=== PATIENT | male | born 1945 | race Caucasian/White ===

== ENCOUNTER 2020-08-09 17:30 | Inpatient (IN) | payer MEDICARE, OTHER ==
[2020-08-09] MEDS ORDERED: Ondansetron PF 4 MG/2 ML Vial ONE (18:13)
[2020-08-09] MEDS ORDERED: Morphine 4 MG/ML VIAL ONE ×2 (18:13→18:51)
[2020-08-09 18:29] LABS: INR-International Normal Ratio 1.1; PTT 23.7 sec (22.9-36.1)
[2020-08-09 18:39] LABS: ALT (SGPT) 92 U/L (8-55); AST (SGOT) 91 U/L (5-34); Albumin 3.2 g/dL (3.4-4.8); Alkaline Phosphatase 78 U/L (40-110); Anion Gap 15 mmol/L (10-20); BUN (Urea Nitrogen) 26 mg/dL (8.4-25.7); Bilirubin, Total 0.3 mg/dL (0.2-1.2); CK (CPK) 186 U/L (30-200); Calc. Creatinine Clearance 0 mL/min (70-130); Calcium 9.8 mg/dL (7.8-10.44); Carbon Dioxide 21 mmol/L (23-31); Chloride 112 mmol/L (98-107); Globulin 3.6 g/dL (2.4-3.5); Glucose 107 mg/dL (83-110); Potassium 4.4 mmol/L (3.5-5.1); Protein, Total 6.8 g/dL (5.8-8.1); Sodium 144 mmol/L (136-145)
[2020-08-09] MEDS ORDERED: Lorazepam 2 MG/ML VIAL ONE (18:49)
[2020-08-09 19:24] LABS: Hemoglobin 10.6 g/dL (14.0-18.0); Mean Corpuscular HGB CONC 34.3 g/dL (32.0-36.0); Mean Corpuscular Hemoglobin 34.7 pg (27.0-31.0); Mean Platelet Volume 8.3 fL (7.4-10.4); Platelet Count 306 thou/uL (130-400); RBC Distribution Width 14.8 % (11.5-14.5); Red Blood Cell (RBC) Count 3.05 mill/uL (4.70-6.10); White Blood Cell (WBC) Count 7.5 thou/uL (4.8-10.8)
[2020-08-09 19:46] LABS: Band 1 % (5-11); Eosinophils 4 % (0-10); Lymphocytes 19 % (21-51); MDiff Complete? YES; Macrocytosis SLIGHT = 6-15 cells (100X) (0-5/hpf); Metamyelocyte 2 % (0-0); Monocytes 10 % (0-10); Neutrophil 64 % (42-75); Platelet Morphology Comment Appears Adequate
--- NOTE | 2020-08-09 20:15 | RAD ---
RIGHT HIP TWO VIEWS: History: Injury from trauma FINDINGS: No fracture, dislocation, or other significant acute osseous process. IMPRESSION: As above. POS: RRE
--- NOTE | 2020-08-09 20:18 | RAD ---
SINGLE VIEW OF THE CHEST: History: Fall from bed with hip pain/fracture. FINDINGS: Single view of the chest shows normal sized cardiomediastinal silhouette. Diffuse increased interstit ial markings are present. A calcified granuloma is seen in the mid left lung. No consolidation or ple ural effusions are seen. Degenerative changes are seen in the spine. IMPRESSION: No evidence of acute cardiopulmonary disease. POS: EAA
--- NOTE | 2020-08-09 20:21 | RAD ---
AP PELVIS: History: Fall from bed with hip pain. FINDINGS: Single view of the pelvis shows an intertrochanteric left femoral fracture. There is questionable irr egularity of the right superior and inferior pubic rami. No other fractures are appreciated. No degen erative changes are seen in either hip. IMPRESSION: 1. Intertrochanteric left femoral fracture. 2. Possible fractures of the right superior and inferior pubic rami. POS: EAA
--- NOTE | 2020-08-09 20:28 | RAD ---
TWO VIEWS LEFT HIP: History: Fall from bed with hip pain. FINDINGS: Two views of the left hip shows an intertrochanteric left femoral fracture. No degenerative change is seen in the left hip. No dislocation of the hip is seen. There is questionable irregularity along th e right inferior pubic ramus which could represent a nondisplaced fracture in this location. The supe rior pubic ramus may also be abnormal. IMPRESSION: 1. Intertrochanteric left femur fracture. 2. Possible fractures of the right superior and inferior pubic rami. POS: EAA
--- NOTE | 2020-08-09 20:35 | CT ---
CT BRAIN WITHOUT CONTRAST: Comparison: None History: Fall with head trauma and back pain FINDINGS: Multiple contiguous axial images were obtained in a CT of the brain without contrast. Sagittal and co vicente reformats were performed. FINDINGS: There are extensive hypodensities in the subcortical compartment of the white matter, likely secondar y to small vessel ischemic disease. There appears to be a remote infarction in the right frontal lobe . There is no evidence of hydrocephalus, intracranial hemorrhage, or extraaxial fluid collection. The calvarium and overlying soft tissues are unremarkable. The visualized paranasal sinuses and masto id air cells are well aerated. IMPRESSION: No evidence of acute intracranial abnormality. POS: EAA
[2020-08-09] MEDS ORDERED: Ondansetron PF 4 MG/2 ML Vial IVP PRN ×2 (21:22→21:33)
[2020-08-09] MEDS ORDERED: hydrALAZINE 20 MG/ML VIAL SLOW IVP PRN (21:22)
[2020-08-09] MEDS ORDERED: Dextrose 5% in Water 1,000 ML IV PRN (21:22)
[2020-08-09] MEDS ORDERED: Dextrose 50% Abboject 50 ML SYRINGE SLOW IVP PRN (21:22)
[2020-08-09] MEDS ORDERED: Morphine 2 MG/ML VIAL SLOW IVP PRN (21:22)
[2020-08-09] MEDS ORDERED: traMADol HCl 50 MG TAB PO PRN ×2 (21:33→22:52)
[2020-08-09 21:40] LABS: Magnesium 1.4 mg/dL (1.6-2.6)
[2020-08-09] MEDS ORDERED: traMADol HCl 50 MG TAB PO SCH (21:45)
[2020-08-09] MEDS ORDERED: Sodium Phosphate 30 MMOL, Magnesium Sulfate 4 GM in Sodium Chloride 0.9% 250 ML 250 ML IVPB SCH (23:00)
[2020-08-09] MEDS ORDERED: Sodium Phosphate 30 MMOL in Sodium Chloride 0.9% 250 ML 250 ML IVPB SCH (23:00)
[2020-08-09] MEDS: traMADol HCl 50 MG TAB PO SCH (23:33)
[2020-08-09] MEDS: Acetaminophen 500 MG TAB PO SCH (23:33)
[2020-08-09] MEDS ORDERED: Acetaminophen 500 MG TAB PO SCH (23:59)
[2020-08-09] MEDS ORDERED: Sodium Chloride 0.9% 1,000 ML IV SCH (23:59)
--- NOTE | 2020-08-10 00:22 | HP ---
REQUESTING PHYSICIAN: Dr. Hill. CONSULTS: Orthopedic Surgery, Dr. Whitney. CHIEF COMPLAINT: Fall from bed, left hip pain. HISTORY OF PRESENT ILLNESS: This is a 74-year-old gentleman with past medical history of dementia, epilepsy, TIA, chronic kidney disease, who lives at [facility], who fell out of bed. The patient was sent over for left hip pain. It is unsure what the patient's baseline mental status is. It is also not clear if the patient is ambulatory. The patient was agitated and yelling out in the emergency room and was given Ativan 1 mg IV. The patient was also given morphine for pain and Zofran. The patient did receive 1 L normal saline in the emergency room. Currently, the patient is resting comfortably. The patient was evaluated in the emergency room and found to have a left intertrochanteric femur fracture and a possible right superior inferior pubic rami fracture. Orthopedic Surgery was consulted. skilled nursing denies any fever, chills, chest pain, nausea, or vomiting. It has been reported this is the patient's second fall in the last couple of days. All subjective data gathered from ER records and senior care records. PAST MEDICAL HISTORY: Benign prostatic hyperplasia, hyperlipidemia, dementia, epilepsy, TIA, chronic kidney disease. PAST SURGICAL HISTORY: None. SOCIAL HISTORY: No tobacco use history reported. FAMILY HISTORY: Unknown. ALLERGIES: NO KNOWN DRUG ALLERGIES. CURRENT MEDICATIONS: 1. Amlodipine 2.5 mg daily. 2. Docusate 100 mg b.i.d. 3. Fenofibrate 145 mg daily. 4. Flomax 0.4 mg daily. 5. Keppra 100 mg twice a day. 6. Pravastatin 40 mg once a day. 7. Montelukast 10 mg p.o. h.s. 8. Vimpat 200 mg b.i.d. 9. Vitamin D 5000 units once a week every Monday. OBJECTIVE: VITAL SIGNS: Blood pressure 99/49, pulse 97, SpO2 100% on room air, respirations 16, temperature 98.5. GENERAL: Elderly male, resting on left side, arouses to pain, nonverbal at this time. HEENT: Head is atraumatic, normocephalic, pupils are equal bilateral. Trachea midline, no cervical spine tenderness. RESPIRATORY: Bilateral breath sounds clear, no respiratory distress. CARDIOVASCULAR: Regular rate, regular rhythm, no murmurs, no pedal edema. ABDOMEN: Soft, nontender, nondistended. EXTREMITIES: Distal pulses intact, unable to test strength due to patient being uncooperative. Tenderness of left hip with palpation. SKIN: Warm, dry, normal color. LABORATORY DATA: WBC 7.5, RBC 3.05, hemoglobin 10.6, hematocrit 30.8, platelets 306. PT 14.0, INR 1.1, APTT 23.7. Sodium 144, potassium 4.4, chloride 112, carbon dioxide 21, BUN 26, creatinine 2.21, estimated GFR 29, glucose 107, calcium 9.8, phosphorus 2.0, magnesium 1.4, AST 91, ALT 92, alkaline phos 78, CK 186, albumin 3.2. DIAGNOSTICS: 1. 12-lead EKG, sinus tachycardia with right bundle-branch block. 2. Chest x-ray, impression, no evidence of acute cardiopulmonary disease. 3. Left hip x-ray, impression, intertrochanteric left femur fracture. Possible fractures of the right superior and inferior pubic rami. 4. Pelvis x-ray, impression, intertrochanteric left femur fracture. Possible fractures of the right superior and inferior pubic rami fracture. 5. Brain CT, impression, no evidence of acute intracranial abnormality. 6. Right hip x-ray, impression; no acute dislocation or significant acute osseous process. ASSESSMENT: 1. Fall from bed. 2. Left intertrochanteric femur fracture. 3. Possible right superior and inferior pubic rami fracture. 4. Hypomagnesium. 5. Hypophosphatemia. 6. Chronic kidney disease, stage 4, unable to determine baseline creatinine. 7. History of dementia, benign prostatic hyperplasia, epilepsy, transient ischemic attack, and chronic kidney disease. PLAN: Admit to the surgical floor. N.p.o. after midnight with maintenance IV fluids normal saline 100 mL an hour. Pain control. Orthopedic Surgery plans to take the patient to the OR tomorrow. PT and OT to evaluate and treat postop. We will replace electrolytes. Mechanical VTE prophylaxis. Once the patient's hemoglobin is stable postop, the patient will be placed on chemical VTE prophylaxis. The patient will likely be discharged back to his shelter facility once ready. The plan will be discussed with the attending after this dictation. Job ID: [id number] [facility]
[2020-08-10] MEDS ORDERED: Famotidine 20 MG TAB ONE (08:49)
[2020-08-10] MEDS ORDERED: Amlodipine 5 MG TAB ONE (08:49)
[2020-08-10] MEDS ORDERED: FLU VACC QS2020-21(65YR UP)/PF 240 MCG/0.7 ML SYRINGE IM ONE (09:00)
[2020-08-10] MEDS ORDERED: Amlodipine 5 MG TAB PO SCH (10:45)
--- NOTE | 2020-08-10 13:01 | PRG ---
DATE OF SERVICE: 08/10/2020 SUBJECTIVE: The patient is currently on the surgical floor. He was admitted last evening, status post fall from bed at his nursing home facility. The patient was brought in to the emergency department, where he was noted to have a left intertrochanteric femur fracture and likely pubic rami fractures. He is currently n.p.o., awaiting surgery with Dr. Whitney. Nurses report that they were able to contact his [id number], who agreed to surgery. PHYSICAL EXAMINATION: VITAL SIGNS: Temperature is 98.0, heart rate 104, blood pressure 110/68, respirations 16, and oxygen saturation 94% on room air. GENERAL: The patient is resting comfortably in bed. He appears in no distress. He has significant dementia. He responds with some appropriateness. He is able to answer very simple questions and follow very simple commands. HEENT: Unremarkable. RESPIRATIONS: Nonlabored, clear bilaterally. HEART: Regular rate and rhythm. ABDOMEN: Soft, nontender, nondistended with active bowel sounds. EXTREMITIES: Neurovascularly intact x4. LABORATORY AND DIAGNOSTIC DATA: Labs are not available at this time. There are no radiographs reviewed this morning. ASSESSMENT: 1. Status post fall from bed. 2. Left intertrochanteric femur fracture, awaiting surgery. 3. Possible right superior and inferior pubic rami fracture, will be treated nonoperatively regardless. 4. History of chronic kidney disease stage 4, history of dementia, BPH, epilepsy, . PLAN: Plan will be to continue supportive care to include n.p.o. until surgery today. We have asked the nurse to contact the power of banking attorney with a power of banking attorney to establish a baseline for the patient both in mentation and mobility. The patient will most likely be returned to his nursing home facility postoperatively most likely tomorrow. The patient was evaluated this morning with Dr. Neff during rounds. Job ID: [id number]
[2020-08-10 13:40] LABS: SARS-CoV-2 PCR by NAA Not Detected (NotDetected)
[2020-08-10] MEDS ORDERED: Fentanyl 100 MCG/2 ML VIAL ONE ×3 (13:55→16:26)
[2020-08-10] MEDS ORDERED: cefTRIAXone\\ROCEPHIN 1 GM in Sodium Chloride 0.9% 100 ML IVPB SCH (14:00)
[2020-08-10] MEDS ORDERED: Bupivacaine PF 0.5% 30 ML VIAL ONE (14:26)
[2020-08-10] MEDS ORDERED: Ondansetron PF 4 MG/2 ML Vial ONE (14:39)
[2020-08-10] MEDS ORDERED: PROPOFOL 200 MG/20 ML VIAL ONE (14:39)
[2020-08-10] MEDS ORDERED: Rocuronium Bromide 10 MG/ML (10ML VIAL) ONE (14:39)
[2020-08-10] MEDS ORDERED: Lidocaine 1% PF 5 ML VIAL ONE (14:39)
[2020-08-10] MEDS ORDERED: Ondansetron ODT 4 MG TAB PO PRN (14:40)
[2020-08-10] MEDS ORDERED: Cepastat Lozenges 1 LOZ PO PRN (14:40)
[2020-08-10] MEDS ORDERED: Milk Of Magnesia 30 ML UDCUP PO PRN (14:40)
[2020-08-10] MEDS ORDERED: Bisacodyl 10 MG SUPP PR PRN (14:40)
[2020-08-10] MEDS ORDERED: Ondansetron PF 4 MG/2 ML Vial IVP PRN (14:40)
[2020-08-10] MEDS ORDERED: SUGAMMADEX SODIUM 200 MG/2 ML VIAL ONE (15:02)
--- NOTE | 2020-08-10 15:04 | CON ---
DATE OF CONSULTATION: 08/10/2020 HISTORY OF PRESENT ILLNESS: The patient is a 74-year-old male who has a history of dementia, epilepsy, TIA, chronic kidney disease, lives at [facility], fell out of bed and had immediate pain in the left hip region. He also has some pain in the deep right pelvic region. He was brought to the emergency room and x-rays revealed an intertrochanteric fracture of the left hip and nondisplaced fractures of the right superior and inferior rami. PAST MEDICAL HISTORY: Medical illnesses; epilepsy, history of TIA, chronic kidney disease, hyperlipidemia, dementia. PAST SURGICAL HISTORY: None. ALLERGIES: NONE. PHYSICAL EXAMINATION: In general, the patient is a pleasant male, but he is a poor historian. He will follow simple commands. He is able to move both his feet and ankles. The skin over the left hip and right pelvic region is in good condition. IMPRESSION: 1. Intertrochanteric fracture of the left hip. 2. Nondisplaced fractures of the right superior and inferior rami. PLAN: The patient will require stabilization of the intertrochanteric fractures, so that he can be provided with better mobilization and better nursing care and be able to attain higher function as he possibly can. We will proceed with surgery today. Job ID: [id number]
--- NOTE | 2020-08-10 16:08 | OP ---
DATE OF PROCEDURE: 08/10/2020 PREOPERATIVE DIAGNOSIS: Intertrochanteric fracture of the left proximal femur. POSTOPERATIVE DIAGNOSIS: Intertrochanteric fracture of the left proximal femur. PROCEDURE PERFORMED: Open reduction and internal fixation of intertrochanteric fracture of the left hip. ANESTHESIA: General. DESCRIPTION OF PROCEDURE: The patient was given preoperative IV antibiotics, taken to the operating room, placed in supine position. Satisfactory general anesthesia was performed. The patient was then transferred over to the fracture table. All bony prominences were well padded. The patient was placed in traction and C-arm verified good reduction of the intertrochanteric fracture, AP, lateral, multiple oblique views. The left hip and thigh were sterilely prepped and draped in usual fashion. 3-inch incision was made in the lateral aspect of the hip region proximal to the greater trochanter. The tibial band was incised longitudinally. The greater trochanter was located both with the guidewire and with fluoroscopy, guide pin was placed through the greater trochanter, then was overreamed and a [employer] trochanteric fixation nail that was 10 mm in diameter, 170 mm in length was inserted into the proximal femur to the appropriate depth that through a separate 2-inch incision on the lateral aspect of the thigh nail was used to drill a guidewire up through the femoral neck and head. Appropriate size nail was measured. The lateral cortex was overreamed, and a 95-mm helical blade was inserted into the femoral neck and head and then locked in place with the locking device in the nail. Through the same incision on the lateral aspect of the thigh, a guide was used to drill a hole in the distal aspect of the jono and then the femur, it was measured and a 5.0 locking screw that was 32 mm in diameter was inserted into the femur and distal aspect of the nail. Again, this was all performed under fluoroscopic visualization and showed good alignment of the intertrochanteric fracture with good stability. The wounds were then copiously irrigated with antibiotic solution. They were closed using #2 Vicryl for the deeper layer and 0 Vicryl for the fat and subcutaneous tissues. Skin was closed with priti. The wounds were then infiltrated with 30 mL of 0.5% Marcaine with epinephrine. Sterile dressing was applied. The patient was taken off the fracture table and transferred to recovery room in stable condition. ESTIMATED BLOOD LOSS: 50 mL. COMPLICATIONS: None. Job ID: [id number]
[2020-08-10 17:10] LABS: Anion Gap 12 mmol/L (10-20); BUN (Urea Nitrogen) 23 mg/dL (8.4-25.7); Calc. Creatinine Clearance 29 mL/min (70-130); Calcium 9.2 mg/dL (7.8-10.44); Carbon Dioxide 19 mmol/L (23-31); Chloride 115 mmol/L (98-107); Glucose 88 mg/dL (83-110); Magnesium 2.1 mg/dL (1.6-2.6); Phosphorus 3.9 mg/dL (2.3-4.7); Potassium 4.4 mmol/L (3.5-5.1); Sodium 142 mmol/L (136-145)
[2020-08-10] MEDS: Acetaminophen 325 MG TAB PO SCH ×2 (17:53→23:16)
[2020-08-10] MEDS: traMADol HCl 50 MG TAB PO SCH ×2 (17:55→23:15)
[2020-08-10] MEDS ORDERED: Ketorolac Tromethamine 30 MG/ML VIAL IVP SCH (18:00)
[2020-08-10 18:16] LABS: Hemoglobin 9.1 g/dL (14.0-18.0); Mean Corpuscular HGB CONC 34.2 g/dL (32.0-36.0); Mean Corpuscular Hemoglobin 34.9 pg (27.0-31.0); Mean Platelet Volume 8.1 fL (7.4-10.4); Platelet Count 251 thou/uL (130-400)
--- NOTE | 2020-08-10 18:48 | RAD ---
LEFT HIP TWO VIEWS: INDICATIONS: Imaging during open reduction and internal fixation, left lip. TECHNIQUE: Two fluoroscopic images were presented from the OR. FINDINGS: These images show an intramedullary jono and pin transfixing the left hip. POS: AGW
[2020-08-10 19:10] LABS: Anion Gap 12 mmol/L (10-20); BUN (Urea Nitrogen) 20 mg/dL (8.4-25.7); Calc. Creatinine Clearance 31 mL/min (70-130); Calcium 9.2 mg/dL (7.8-10.44); Carbon Dioxide 23 mmol/L (23-31); Chloride 113 mmol/L (98-107); Glucose 105 mg/dL (83-110); Potassium 4.4 mmol/L (3.5-5.1); Sodium 144 mmol/L (136-145)
[2020-08-10] MEDS: Famotidine 20 MG TAB PO SCH (19:44)
[2020-08-10] MEDS: Senokot S 8.6-50 MG TAB PO SCH ×3 (19:45→21:32)
[2020-08-10] MEDS: Polyethylene Glycol 3350 17 GM Packet PO SCH (19:45)
[2020-08-10] MEDS: Acetaminophen 500 MG TAB PO SCH ×2 (20:07→20:08)
[2020-08-10 20:34] LABS: Anisocytosis SLIGHT = 6-15 cells (100X) (0-5/hpf); Band 13 % (5-11); Hypochromia SLIGHT = 6-15 cells (100X) (0-5/hpf); Lymphocytes 23 % (21-51); MDiff Complete? YES; Macrocytosis SLIGHT = 6-15 cells (100X) (0-5/hpf); Monocytes 16 % (0-10); Neutrophil 41 % (42-75); Platelet Morphology Comment Appears Adequate; Polychromasia MODERATE = 3-4 cells (100X) (0-2/hpf); Reactive Lymphocytes 7 % (0-10)
[2020-08-10] MEDS: cefTRIAXone\\ROCEPHIN 1 GM in Sodium Chloride 0.9% 100 ML IVPB SCH (21:28)
[2020-08-10] MEDS: Montelukast Sodium 10 mg Tablet PO SCH (21:30)
[2020-08-10] MEDS: Aspirin 325 MG TAB PO SCH (21:30)
[2020-08-10] MEDS: Lacosamide 50 mg Tablet PO SCH (21:31)
[2020-08-10] MEDS: Atorvastatin Calcium 10 MG TAB PO SCH (21:31)
[2020-08-10] MEDS: CEFAZOLIN 2 GM in Premix Bag 1 BAG IVPB SCH (23:17)
[2020-08-11 05:54] LABS: Magnesium 1.7 mg/dL (1.6-2.6); Phosphorus 2.9 mg/dL (2.3-4.7)
[2020-08-11] MEDS: Acetaminophen 325 MG TAB PO SCH ×3 (05:57→18:32)
[2020-08-11] MEDS: CEFAZOLIN 2 GM in Premix Bag 1 BAG IVPB SCH (05:59)
[2020-08-11 06:53] LABS: Band 13 % (5-11); Eosinophils 2 % (0-10); Hemoglobin 8.4 g/dL (14.0-18.0); Lymphocytes 10 % (21-51); MDiff Complete? YES; Mean Corpuscular HGB CONC 33.7 g/dL (32.0-36.0); Mean Corpuscular Hemoglobin 34.7 pg (27.0-31.0); Mean Platelet Volume 8.2 fL (7.4-10.4); Monocytes 8 % (0-10); Neutrophil 67 % (42-75); Platelet Count 238 thou/uL (130-400); Red Blood Cell (RBC) Count 2.41 mill/uL (4.70-6.10); White Blood Cell (WBC) Count 7.7 thou/uL (4.8-10.8)
[2020-08-11] MEDS: Famotidine 20 MG TAB PO SCH (08:53)
[2020-08-11] MEDS: Multivitamin W/ Minerals 1 TAB PO SCH (08:54)
[2020-08-11] MEDS: Amlodipine 5 MG TAB PO SCH (08:54)
[2020-08-11] MEDS: Tamsulosin HCl 0.4 MG CAP PO SCH (08:54)
[2020-08-11] MEDS: Senokot S 8.6-50 MG TAB PO SCH ×5 (08:54→20:37)
[2020-08-11] MEDS: Aspirin 325 MG TAB PO SCH (08:54)
[2020-08-11] MEDS: Ferrous Gluconate 324 MG TAB PO SCH ×2 (08:55→20:36)
[2020-08-11] MEDS ORDERED: Amlodipine 5 MG TAB PO SCH (09:00)
[2020-08-11] MEDS: Polyethylene Glycol 3350 17 GM Packet PO SCH (09:03)
[2020-08-11] MEDS: Fenofibrate Nanocrystallized 145 MG TAB PO SCH (09:07)
--- NOTE | 2020-08-11 10:09 | PRG ---
DATE OF SERVICE: 08/11/2020 SUBJECTIVE: The patient is status post ORIF of an intertrochanteric fracture of the left hip. He also has fracture of the right inferior and superior rami. The patient states that his pain is well controlled. OBJECTIVE: VITAL SIGNS: The patient has been afebrile. Pulse 106, respiratory rate 18, O2 saturation 98% on room air, blood pressure 112/54. Both lower extremities are neurovascularly intact. LABORATORY DATA: This morning shows hemoglobin 8.4, hematocrit 24.8. PLAN: The patient will work with Physical and Occupational Therapy. He may weightbear as tolerated on both lower extremities. The patient's plan at this point is to go back home, but we will see how he does with therapy. We will have Case Management also talk with the patient. Job ID: [id number]
[2020-08-11] MEDS: Lacosamide 50 mg Tablet PO SCH ×2 (14:59→21:43)
[2020-08-11] MEDS: Gabapentin 100 MG CAP PO SCH ×2 (15:00→20:36)
[2020-08-11] MEDS: traMADol HCl 50 MG TAB PO SCH ×3 (15:01→23:45)
--- NOTE | 2020-08-11 15:09 | PRG ---
DATE OF SERVICE: 08/11/2020 SUBJECTIVE: A 74-year-old male patient status post ORIF, intertrochanteric fracture of the left hip. The patient is recovering well on the surgical floor. The patient is tolerating diet, pain not well controlled. fracture of the OBJECTIVE: VITAL SIGNS: Temperature 98.7, pulse 102, respiratory rate 18, O2 98, blood pressure 120/63. GENERAL: No acute distress. Resting comfortably in bed. LUNGS: Clear bilaterally. No accessory muscle use. Speaking in full sentences. EXTREMITIES: Both lower extremities are neurovascularly intact. LABORATORY DATA: Hemoglobin 8.4, hemoglobin 24.8, white blood cell count 7.7, and platelets 15. Chemistry: Sodium 144, potassium 4.4, bicarbonate 23, chloride 113, BUN 22, creatinine 0.79, phosphorus 2.9, magnesium 1.7. ASSESSMENT AND PLAN: 1 Slip/fall 2 right inferior and superior rami. 3 s/p ORIF, intertrochanteric fracture of the left hip. 4 pmhx BPH, epilepsy, dementia, CKD Plan Mr. Cisneros is a 74-year-old male status post ORIF, IT, left hip repair. The patient is recovering well on the surgical floor. The patient participated with PT and OT. Home epileptic drugs started at the time of admission. Pain regimen adjusted increased started gabapentin and Tylenol Discussed discharge to subacute rehab when medically stable. Replete electrolytes aggressively. DVT prophylaxis. The patient is seen and examined with Dr. Gómez and he agrees with the plan and assessment. Job ID: [id number] MTDD
[2020-08-11] MEDS ORDERED: Magnesium Sulfate 3 GM in Sodium Chloride 0.9% 100 ML IV SCH (19:00)
[2020-08-11] MEDS: levETIRAcetam 500 mg/5 ml Oral Solution PO SCH (20:36)
[2020-08-11] MEDS: Atorvastatin Calcium 10 MG TAB PO SCH (20:36)
[2020-08-11] MEDS: Montelukast Sodium 10 mg Tablet PO SCH (20:37)
[2020-08-11] MEDS ORDERED: Aspirin 81 mg Enteric Coated Tablet PO SCH (21:00)
[2020-08-11] MEDS: cefTRIAXone\\ROCEPHIN 1 GM in Sodium Chloride 0.9% 100 ML IVPB SCH ×2 (21:12→23:54)
[2020-08-12] MEDS: Acetaminophen 325 MG TAB PO SCH ×5 (00:07→23:20)
[2020-08-12] MEDS: Ciprofloxacin 500 MG TAB PO SCH ×2 (05:58→20:27)
[2020-08-12 06:28] LABS: Anion Gap 11 mmol/L (10-20); BUN (Urea Nitrogen) 19 mg/dL (8.4-25.7); Calc. Creatinine Clearance 32 mL/min (70-130); Calcium 9.7 mg/dL (7.8-10.44); Carbon Dioxide 23 mmol/L (23-31); Chloride 111 mmol/L (98-107); Glucose 103 mg/dL (83-110); Magnesium 2.4 mg/dL (1.6-2.6); Phosphorus 2.7 mg/dL (2.3-4.7); Sodium 141 mmol/L (136-145)
[2020-08-12] MEDS: traMADol HCl 50 MG TAB PO SCH (06:39)
[2020-08-12 06:40] LABS: Band 3 % (5-11); Eosinophils 6 % (0-10); Hemoglobin 8.6 g/dL (14.0-18.0); Lymphocytes 9 % (21-51); MDiff Complete? YES; Mean Corpuscular HGB CONC 33.1 g/dL (32.0-36.0); Mean Corpuscular Hemoglobin 33.8 pg (27.0-31.0); Mean Platelet Volume 7.8 fL (7.4-10.4); Monocytes 14 % (0-10); Myelocyte 1 % (0-0); Neutrophil 67 % (42-75); Platelet Count 240 thou/uL (130-400); RBC Distribution Width 14.6 % (11.5-14.5); Red Blood Cell (RBC) Count 2.54 mill/uL (4.70-6.10); White Blood Cell (WBC) Count 7.3 thou/uL (4.8-10.8)
[2020-08-12] MEDS: Gabapentin 100 MG CAP PO SCH ×3 (08:51→20:27)
[2020-08-12] MEDS: Senokot S 8.6-50 MG TAB PO SCH ×4 (08:53→21:31)
[2020-08-12] MEDS: Ferrous Gluconate 324 MG TAB PO SCH ×3 (08:53→20:27)
[2020-08-12] MEDS: Amlodipine 5 MG TAB PO SCH (08:53)
[2020-08-12] MEDS: Tamsulosin HCl 0.4 MG CAP PO SCH (08:53)
[2020-08-12] MEDS: Multivitamin W/ Minerals 1 TAB PO SCH (08:53)
[2020-08-12] MEDS: Famotidine 20 MG TAB PO SCH (08:54)
[2020-08-12] MEDS: Polyethylene Glycol 3350 17 GM Packet PO SCH (08:54)
[2020-08-12] MEDS ORDERED: Aspirin 325 mg Enteric Coated Tablet PO SCH (09:00)
[2020-08-12] MEDS: Fenofibrate Nanocrystallized 145 MG TAB PO SCH (09:08)
[2020-08-12] MEDS: Aspirin 81 mg Enteric Coated Tablet PO SCH ×2 (09:09→20:27)
[2020-08-12] MEDS: Lacosamide 50 mg Tablet PO SCH ×2 (10:28→20:27)
[2020-08-12] MEDS: levETIRAcetam 500 mg/5 ml Oral Solution PO SCH ×2 (10:28→20:27)
--- NOTE | 2020-08-12 13:12 | PRG ---
DATE OF SERVICE: 08/12/2020 SUBJECTIVE: Mr. Cisneros states that he has mild pain that is well controlled. He is 2 days status post ORIF of the intertrochanteric fracture of the left hip. He also has fractures of the right superior and inferior rami in the anterior pelvis. OBJECTIVE: VITAL SIGNS: The patient has been afebrile. Last vital signs 122/65. LABORATORY DATA: Hemoglobin this morning is 8.6. PLAN: The patient will continue to work with PT and OT. [facility], he can be discharged if he had an appropriate place to be discharged to either assisted facility or possibly snf. Job ID: [id number]
--- NOTE | 2020-08-12 18:27 | EKG ---
Test Reason : PREOP Blood Pressure : / mmHG Vent. Rate : 101 BPM Atrial Rate : 101 BPM P-R Int : 174 ms QRS Dur : 136 ms QT Int : 366 ms P-R-T Axes : 053 000 021 degrees QTc Int : 474 ms Sinus tachycardia Right bundle branch block Abnormal ECG No previous ECGs available Confirmed by TAM MONTES DE OCA, DR. Hudson ([id number]) on 08/12/2020 6:27:32 PM Referred By: RAMÓN Confirmed By:DR. Becca TURCIOS MD
[2020-08-12] MEDS: Atorvastatin Calcium 10 MG TAB PO SCH (20:27)
[2020-08-12] MEDS: Montelukast Sodium 10 mg Tablet PO SCH (20:27)
[2020-08-13] MEDS: Acetaminophen 325 MG TAB PO SCH ×4 (05:41→23:20)
[2020-08-13] MEDS: Ciprofloxacin 500 MG TAB PO SCH ×2 (05:41→20:46)
--- NOTE | 2020-08-13 06:08 | PRG ---
DATE OF SERVICE: 08/12/2020 SUBJECTIVE: A 74-year-old male, status post ORIF intertrochanteric fracture of the left hip. The patient is recovering well on the surgical floor. The patient is tolerating diet and pain is well controlled after adjustment of pain regimen. OBJECTIVE: VITAL SIGNS: Temperature 98, pulse 103, blood pressure 116/66, respiratory rate 14, O2 saturation 97 on room air. GENERAL: In no acute distress. Resting comfortably in bed. LUNGS: speaking full sentences EXTREMITIES: Moving bilateral extremities, neurovascularly intact. LABORATORY DATA: Hemoglobin 8.6, hematocrit 25.9, white blood cells 7.3, platelet 240. Chemistry: Sodium 141, potassium 4.0, chloride 111, BUN 19, creatinine 1.75, phosphorus 2.7, magnesium 2.4. ASSESSMENT: 1. Slip and fall. 2. Right inferior and superior rami fracture. 3. Status post open reduction and internal fixation of intertrochanteric fracture of the left hip. 4. BPH, epilepsy, dementia, CKD. PLAN: A 74-year-old man status post ORIF IT left hip repair. The patient is recovering well on the surgical floor. The patient is participating with PT and OT. Continue bowel regimen and pain regimen. Continue to replace electrolytes. DVT prophylaxis. Dispo pending [facility] denied patient because of poor rehab ability. The patient is seen and examined with Dr. Wolfe, who agrees with the assessment and plan Job ID: [id number] MTDD
[2020-08-13] MEDS: Aspirin 81 mg Enteric Coated Tablet PO SCH ×2 (08:47→20:45)
[2020-08-13] MEDS: Polyethylene Glycol 3350 17 GM Packet PO SCH ×2 (08:48→08:53)
[2020-08-13] MEDS: Multivitamin W/ Minerals 1 TAB PO SCH (08:48)
[2020-08-13] MEDS: Ferrous Gluconate 324 MG TAB PO SCH ×2 (08:48→20:46)
[2020-08-13] MEDS: Gabapentin 100 MG CAP PO SCH ×3 (08:48→20:46)
[2020-08-13] MEDS: Tamsulosin HCl 0.4 MG CAP PO SCH (08:49)
[2020-08-13] MEDS: Senokot S 8.6-50 MG TAB PO SCH ×3 (08:49→20:45)
[2020-08-13] MEDS: Fenofibrate Nanocrystallized 145 MG TAB PO SCH (09:54)
[2020-08-13] MEDS: levETIRAcetam 500 mg/5 ml Oral Solution PO SCH ×2 (09:55→20:43)
[2020-08-13] MEDS: Amlodipine 5 MG TAB PO SCH (09:58)
[2020-08-13] MEDS: Lacosamide 50 mg Tablet PO SCH ×2 (10:35→20:44)
[2020-08-13] MEDS: traMADol HCl 50 MG TAB PO PRN ×2 (15:22→23:19)
[2020-08-13] MEDS: Montelukast Sodium 10 mg Tablet PO SCH (20:45)
[2020-08-13] MEDS: Atorvastatin Calcium 10 MG TAB PO SCH (20:46)
--- NOTE | 2020-08-14 00:42 | PRG ---
DATE OF SERVICE: 08/14/2020 Mr. Cisneros is a 74-year-old male, status post open slip and fall, repair of left IT fracture. The patient is not in any acute distress during the rounds, very talkative this evening. The patient has been denied from [facility] due to noncompliance in the past and poor rehab potential. We will work with Case Management on sending out additional referrals. Job ID: [id number]
[2020-08-14] MEDS: Ciprofloxacin 500 MG TAB PO SCH ×2 (05:26→21:51)
[2020-08-14] MEDS: traMADol HCl 50 MG TAB PO PRN (05:26)
[2020-08-14] MEDS: Acetaminophen 325 MG TAB PO SCH ×3 (05:27→17:42)
[2020-08-14] MEDS: levETIRAcetam 500 mg/5 ml Oral Solution PO SCH ×2 (08:16→21:54)
[2020-08-14] MEDS: Tamsulosin HCl 0.4 MG CAP PO SCH (08:16)
[2020-08-14] MEDS: Polyethylene Glycol 3350 17 GM Packet PO SCH (08:16)
[2020-08-14] MEDS: Aspirin 81 mg Enteric Coated Tablet PO SCH ×2 (08:17→21:51)
[2020-08-14] MEDS: Amlodipine 5 MG TAB PO SCH (08:17)
[2020-08-14] MEDS: Fenofibrate Nanocrystallized 145 MG TAB PO SCH (08:17)
[2020-08-14] MEDS: Ferrous Gluconate 324 MG TAB PO SCH ×2 (08:17→21:51)
[2020-08-14] MEDS: Gabapentin 100 MG CAP PO SCH ×3 (08:18→21:51)
[2020-08-14] MEDS: Multivitamin W/ Minerals 1 TAB PO SCH (08:18)
[2020-08-14] MEDS: Senokot S 8.6-50 MG TAB PO SCH ×2 (08:18→21:54)
[2020-08-14] MEDS: Lacosamide 50 mg Tablet PO SCH ×2 (10:59→21:54)
--- NOTE | 2020-08-14 14:33 | PRG ---
DATE OF SERVICE: 08/14/2020 SUBJECTIVE: The patient is currently on the surgical floor. He is status post ground level fall and sustained a left intertrochanteric femur fracture along with inferior and superior pubic rami fractures on the right. The patient is postop day #4 status post open reduction and internal fixation of his left hip fracture. The patient is doing well. He reports his pain is controlled and he is tolerating a diet. He is slowly progressing with physical and occupational therapy and this is slowing his placement. He Case Management is working with his power of tax attorney on finding a placement. OBJECTIVE: VITAL SIGNS: Temperature is 97.4, heart rate 80, blood pressure 107/64, respirations 12, oxygen saturation 97% on room air. GENERAL: The patient is resting comfortably in bed. He is awake, conversant, appropriate. He appears at his baseline. LUNGS: His respirations are nonlabored. He has equal rise and fall of his chest. ABDOMEN: Nondistended. EXTREMITIES: Neurovascular intact x4. LABORATORY DATA: There are no labs or radiographs to review this morning. ASSESSMENT: 1. Status post ground level fall. 2. Status post open reduction and internal fixation of left intertrochanteric femur fracture. 3. Right inferior and superior pubic rami fracture, stable. 4. History of BPH, epilepsy, dementia, and chronic kidney disease. PLAN: Continue supportive care, encourage physical and occupational therapy, and await final placement decision. The patient was discussed with Dr. Wolfe during rounds this morning. Job ID: [id number]
[2020-08-14] MEDS: Montelukast Sodium 10 mg Tablet PO SCH (21:51)
[2020-08-14] MEDS: Atorvastatin Calcium 10 MG TAB PO SCH (21:51)
[2020-08-14] MEDS ORDERED: Lactated Ringer's 500 ML IV SCH (23:15)
[2020-08-15] MEDS: Acetaminophen 325 MG TAB PO SCH ×4 (00:05→18:57)
--- NOTE | 2020-08-15 04:07 | PRG ---
DATE OF SERVICE: 08/14/2020 Mr. Cisneros is a 74-year-old male, status post ground-level fall, postop day 4 from left IT fracture along with inferior and superior rami fracture, right. The patient was examined in the evening in his bed. The patient states his pain was well controlled. I examined the patient, he appears delirious, trying to pluck things out of air with his hands and read magazines that are not physically in front of him. Patient reports pain is well controlled and he is tolerating diet. The patient is able to work with PT, OT, but only able to stand at bedside seconds before his knees buckle. The patient has been denied from [place]. Referral has been sent to [facility], awaiting response. OBJECTIVE: VITAL SIGNS: Today, temperature 98.4, pulse 111, respiratory rate 18, O2 sat 97%, blood pressure 137/74. HEART: Patient is tachycardic with heart rate of 111. 1Ground level fall 2 s/p left IT fracture 3 Right inferior and superior rami fracture Plan 1 Dispo to rehab, [place] 2 Increase urine output 3 BPH flow max We will have the nurse encourage 4. Delirium, the patient is not sleeping well at night getting up throughout the night and not getting much rest during the day. Job ID: [id number] [facility]
[2020-08-15] MEDS: Ciprofloxacin 500 MG TAB PO SCH ×2 (06:06→20:59)
[2020-08-15] MEDS: Gabapentin 100 MG CAP PO SCH ×3 (09:58→21:00)
[2020-08-15] MEDS: Fenofibrate Nanocrystallized 145 MG TAB PO SCH (09:58)
[2020-08-15] MEDS: Senokot S 8.6-50 MG TAB PO SCH ×2 (10:00→21:05)
[2020-08-15] MEDS: Aspirin 81 mg Enteric Coated Tablet PO SCH ×2 (10:00→20:59)
[2020-08-15] MEDS: Ferrous Gluconate 324 MG TAB PO SCH ×2 (10:01→21:00)
[2020-08-15] MEDS: Tamsulosin HCl 0.4 MG CAP PO SCH (10:02)
[2020-08-15] MEDS: Amlodipine 5 MG TAB PO SCH (10:02)
[2020-08-15] MEDS: Polyethylene Glycol 3350 17 GM Packet PO SCH (10:02)
[2020-08-15] MEDS: Multivitamin W/ Minerals 1 TAB PO SCH (10:03)
[2020-08-15] MEDS: levETIRAcetam 500 mg/5 ml Oral Solution PO SCH ×2 (10:06→20:58)
[2020-08-15] MEDS: Lacosamide 50 mg Tablet PO SCH ×2 (10:08→21:00)
[2020-08-15] MEDS: Acetaminophen/Codeine 30-300mg Tablet PO PRN (12:23)
--- NOTE | 2020-08-15 17:31 | EKG ---
Test Reason : FALL Blood Pressure : / mmHG Vent. Rate : 101 BPM Atrial Rate : 101 BPM P-R Int : 184 ms QRS Dur : 100 ms QT Int : 334 ms P-R-T Axes : 062 -11 -10 degrees QTc Int : 433 ms Sinus tachycardia Incomplete right bundle branch block Nonspecific T wave abnormality Abnormal ECG Confirmed by JORDAN MONTES DE OCA, DENIS ([id number]), editor continuity and script NAHID AVELAR ([id number]) on 08/15/2020 5:31:35 PM Referred By: Confirmed By:DENIS ORTEGA MD
[2020-08-15] MEDS: Atorvastatin Calcium 10 MG TAB PO SCH (20:59)
[2020-08-15] MEDS: Montelukast Sodium 10 mg Tablet PO SCH (20:59)
[2020-08-16] MEDS: Acetaminophen 325 MG TAB PO SCH ×5 (00:10→23:48)
--- NOTE | 2020-08-16 00:46 | PRG ---
DATE OF SERVICE: 08/15/2020 SUBJECTIVE: The patient is status post ground level fall, left intertrochanteric femur fracture, inferior and superior pubic rami fractures of the right. The patient is postop day #5 status post ORIF with the hip fracture. Currently, he is doing well, awaiting placement. He is impulsive, pulling at lines and tubes. At times, states that he is eating. No acute pain. OBJECTIVE: VITAL SIGNS: Temperature is 98.3, blood pressure 116/62, heart rate is 110, breathing 16 times per minute, 98% on room air. GENERAL: A 74 year male sitting up in no acute distress. RESPIRATORY: Equal rise and fall. No respiratory distress. CARDIOVASCULAR: Strong pulses. Tachycardic. EXTREMITIES: Warm extremities. NEURO: Pleasantly confused. GCS 14. He believes that we are in [place]. PSYCH: Impulsive pulling at things, but he is redirectable. No laboratory data to review. ASSESSMENT: 1. Status post ground level fall. 2. Open reduction and internal fixation of left intertrochanteric femur fracture. 3. Right inferior superior rami fracture, stable. 4. History of BPH, epilepsy, dementia, and chronic kidney disease. PLAN: Continue supportive care. Work with PT/OT, day and night cycles, waiting for placement. Job ID: [id number]
[2020-08-16] MEDS: Ciprofloxacin 500 MG TAB PO SCH ×2 (05:47→21:49)
[2020-08-16] MEDS: Acetaminophen/Codeine 30-300mg Tablet PO PRN ×2 (05:50→10:52)
[2020-08-16] MEDS: Multivitamin W/ Minerals 1 TAB PO SCH (09:36)
[2020-08-16] MEDS: Gabapentin 100 MG CAP PO SCH ×3 (09:36→21:51)
[2020-08-16] MEDS: Ferrous Gluconate 324 MG TAB PO SCH ×2 (09:36→21:51)
[2020-08-16] MEDS: Tamsulosin HCl 0.4 MG CAP PO SCH (09:36)
[2020-08-16] MEDS: Aspirin 81 mg Enteric Coated Tablet PO SCH ×2 (09:37→21:49)
[2020-08-16] MEDS: Amlodipine 5 MG TAB PO SCH (09:37)
[2020-08-16] MEDS: Senokot S 8.6-50 MG TAB PO SCH ×2 (09:38→21:50)
[2020-08-16] MEDS: Polyethylene Glycol 3350 17 GM Packet PO SCH (09:38)
[2020-08-16] MEDS: levETIRAcetam 500 mg/5 ml Oral Solution PO SCH ×2 (10:52→21:48)
[2020-08-16] MEDS: Lacosamide 50 mg Tablet PO SCH ×2 (10:53→21:49)
[2020-08-16] MEDS: Fenofibrate Nanocrystallized 145 MG TAB PO SCH (10:54)
--- NOTE | 2020-08-16 19:47 | PRG ---
DATE OF SERVICE: 08/16/2020 SUBJECTIVE: The patient is status post ground level fall, left intertrochanteric femur fracture, status post ORIF. He is postop day #6, doing well, moving his legs. Awaiting placement. He is impulsive at times, being denied at [facility]. OBJECTIVE: VITAL SIGNS: Temperature is 98.7, blood pressure is 124/76, heart rate is 98, breathing 16 times per minute, 97% on room air. GENERAL: A 74-year-old, pleasantly confused male, nontoxic appearing. HEENT: Normocephalic. Trachea is midline. RESPIRATORY: Equal rise and fall. No respiratory distress. CARDIOVASCULAR: Strong pulses. MUSCULOSKELETAL: Moves extremities well. SKIN: Warm and dry. NEUROLOGIC: Pleasantly confused. Moves all extremities. GCS 14. LABORATORY DATA: There is no laboratory data to review today. ASSESSMENT: 1. Status post ground level fall. 2. Open reduction and internal fixation of left intertrochanteric femur fracture. 3. Right inferior superior rami fracture, stable. 4. History of benign prostatic hypertrophy. 5. Epilepsy. 6. Dementia. 7. Chronic kidney disease. 8. Stroke. PLAN: Continue supportive care with PT, OT, and awaiting placement. Discussed with physician colleagues, family friend of the same. Job ID: [id number]
[2020-08-16] MEDS: Atorvastatin Calcium 10 MG TAB PO SCH (21:51)
[2020-08-16] MEDS: Montelukast Sodium 10 mg Tablet PO SCH (21:53)
[2020-08-17] MEDS: Acetaminophen 325 MG TAB PO SCH ×3 (05:28→17:15)
[2020-08-17] MEDS: Ciprofloxacin 500 MG TAB PO SCH ×2 (05:28→20:52)
[2020-08-17] MEDS: Polyethylene Glycol 3350 17 GM Packet PO SCH (08:28)
[2020-08-17] MEDS: Aspirin 81 mg Enteric Coated Tablet PO SCH ×2 (08:28→20:51)
[2020-08-17] MEDS: Senokot S 8.6-50 MG TAB PO SCH ×2 (08:28→20:52)
[2020-08-17] MEDS: Gabapentin 100 MG CAP PO SCH ×3 (08:29→20:52)
[2020-08-17] MEDS: Acetaminophen/Codeine 30-300mg Tablet PO PRN ×2 (08:29→18:45)
[2020-08-17] MEDS: Tamsulosin HCl 0.4 MG CAP PO SCH (08:30)
[2020-08-17] MEDS: Ferrous Gluconate 324 MG TAB PO SCH ×2 (08:30→20:51)
[2020-08-17] MEDS: Amlodipine 5 MG TAB PO SCH (08:30)
[2020-08-17] MEDS: Multivitamin W/ Minerals 1 TAB PO SCH (08:30)
[2020-08-17] MEDS: Fenofibrate Nanocrystallized 145 MG TAB PO SCH (09:21)
[2020-08-17] MEDS: levETIRAcetam 500 mg/5 ml Oral Solution PO SCH ×2 (09:22→20:52)
[2020-08-17] MEDS: Lacosamide 50 mg Tablet PO SCH ×2 (14:50→20:51)
--- NOTE | 2020-08-17 17:46 | PRG ---
DATE OF SERVICE: 08/17/2020 SUBJECTIVE: Mr. Cisneros is a 74-year-old male, status post ground level fall with left intertrochanteric fracture, status post ORIF. The patient is doing well following the surgery. The patient is resting comfortably in bed. The patient is impulsive at times. The patient this morning was sleeping, sleep-wake cycles off, did not attempt to wake the patient. The patient was denied from [facility] because it is not participate. The patient is pending [facility], pending authorization. OBJECTIVE: VITAL SIGNS: Temperature 97.9, pulse 108, respiratory rate 16, O2 saturation 92, blood pressure 104/62. GENERAL: The patient resting comfortably in bed. No acute distress. CARDIAC: Normal sinus rhythm. PULMONARY: No accessory muscle use. No oxygen. On room air. MSK: The patient is actively working with PT. He has decreased strength in the bilateral lower extremities, sensation intact bilaterally upper and lower extremities. NEUROLOGIC: Cranial nerves intact 2 through 12. LABORATORY DATA: No new labs. DIAGNOSTIC FINDINGS: No new diagnostic findings. ASSESSMENT: 1. Status post ground level fall. 2. Open reduction and internal fixation of left intertrochanteric fracture of the femur. 3. Right inferior superior rami fracture, stable. 4. History of benign prostatic hypertrophy. 5. Epilepsy. 6. Dementia. 7. Chronic kidney disease. 8. History of stroke. PLAN: Continue pain and bowel regimen. Aggressively work with PT, OT. Discussed with Case Management, pending authorization to [facility]. The patient was seen and discussed with Dr. Wolfe this morning. Job ID: [id number]
[2020-08-17] MEDS: Montelukast Sodium 10 mg Tablet PO SCH (20:52)
[2020-08-17] MEDS: Atorvastatin Calcium 10 MG TAB PO SCH (20:52)
[2020-08-18] MEDS: Acetaminophen 325 MG TAB PO SCH ×4 (00:50→17:44)
[2020-08-18] MEDS: Ciprofloxacin 500 MG TAB PO SCH (05:05)
[2020-08-18] MEDS: Acetaminophen/Codeine 30-300mg Tablet PO PRN ×2 (05:05→15:05)
[2020-08-18] MEDS: Aspirin 81 mg Enteric Coated Tablet PO SCH ×2 (09:27→19:47)
[2020-08-18] MEDS: Tamsulosin HCl 0.4 MG CAP PO SCH (09:27)
[2020-08-18] MEDS: Senokot S 8.6-50 MG TAB PO SCH (09:28)
[2020-08-18] MEDS: Gabapentin 100 MG CAP PO SCH ×3 (09:28→19:47)
[2020-08-18] MEDS: Lacosamide 50 mg Tablet PO SCH ×2 (09:29→19:46)
[2020-08-18] MEDS: Ferrous Gluconate 324 MG TAB PO SCH ×2 (09:29→19:47)
[2020-08-18] MEDS: Amlodipine 5 MG TAB PO SCH (09:29)
[2020-08-18] MEDS: Multivitamin W/ Minerals 1 TAB PO SCH (09:29)
[2020-08-18] MEDS: levETIRAcetam 500 mg/5 ml Oral Solution PO SCH ×2 (09:30→19:46)
[2020-08-18] MEDS: Fenofibrate Nanocrystallized 145 MG TAB PO SCH (09:30)
[2020-08-18] MEDS: Polyethylene Glycol 3350 17 GM Packet PO SCH (09:30)
--- NOTE | 2020-08-18 18:45 | PRG ---
DATE OF SERVICE: 08/18/2020 SUBJECTIVE: This is a 74-year-old gentleman, status post ground level fall with left intertrochanteric femur fracture, postop day #8 status post open reduction and internal fixation. The patient is currently awake, alert, in no distress. The patient reports pain only whenever he moves. The patient had no overnight events. The patient is tolerating a regular diet. OBJECTIVE: VITAL SIGNS: Temperature 98.3, pulse 95, respirations 14, SpO2 of 97% on room air, blood pressure 122/77. GENERAL: Elderly male, awake, alert, in no distress. RESPIRATORY: Respirations even and nonlabored, bilateral breath sounds clear, no distress. CARDIAC: Regular rate, regular rhythm. ABDOMEN: Soft, nontender. EXTREMITIES: Moves all extremities, neurovascularly intact x4. NEUROLOGIC: No focal deficits. LABORATORY DATA: There are no new labs or diagnostics to review today. ASSESSMENT: 1. Status post ground level fall. 2. Open reduction and internal fixation of left intertrochanteric femur fracture, postoperative day #8. 3. Right inferior-superior rami fracture, stable. 4. History of benign prostatic hypertrophy; epilepsy; dementia; chronic kidney disease, stage 4; and history of CVA. PLAN: Continue supportive care and pain regimen. Continue PT and OT. The patient was denied [facility]. Now, Case Management is working on a long-term prison facility placement. The patient was examined by Dr. Wolfe during morning rounds. Job ID: [id number]
[2020-08-18] MEDS: Atorvastatin Calcium 10 MG TAB PO SCH (19:47)
[2020-08-18] MEDS: Montelukast Sodium 10 mg Tablet PO SCH (19:48)
--- NOTE | 2020-08-19 00:36 | PRG ---
DATE OF SERVICE: 08/18/2020 SUBJECTIVE: The patient was seen this evening during rounds. The patient was resting comfortably and asleep with no signs of acute distress. Nursing reported no acute events. OBJECTIVE: VITAL SIGNS: Temperature 98.1, pulse 108, respirations 18, oxygen saturation 100% on room air, blood pressure 116/71. GENERAL: Well-appearing elderly male, lying in bed, resting comfortably and asleep with no signs of acute distress. ASSESSMENT: 1. Status post fall from bed. 2. Left intertrochanteric femur fracture, status post repair. 3. History of dementia, epilepsy, BPH, transient ischemic attack, and chronic kidney disease 4. PLAN: Continue current diet and pain regimen. Continue physical and occupational therapy. Continue supportive care. The patient is pending discharge to the long-term care facility. He is ready for discharge at this time. Job ID: [id number]
[2020-08-19] MEDS: Acetaminophen 325 MG TAB PO SCH ×4 (01:19→18:35)
[2020-08-19] MEDS: Senokot S 8.6-50 MG TAB PO SCH ×3 (01:19→19:48)
[2020-08-19] MEDS: Gabapentin 100 MG CAP PO SCH ×3 (09:38→19:47)
[2020-08-19] MEDS: Multivitamin W/ Minerals 1 TAB PO SCH (09:39)
[2020-08-19] MEDS: Lacosamide 50 mg Tablet PO SCH ×2 (09:39→19:45)
[2020-08-19] MEDS: Tamsulosin HCl 0.4 MG CAP PO SCH (09:39)
[2020-08-19] MEDS: Aspirin 81 mg Enteric Coated Tablet PO SCH ×2 (09:40→19:46)
[2020-08-19] MEDS: Amlodipine 5 MG TAB PO SCH (09:40)
[2020-08-19] MEDS: Fenofibrate Nanocrystallized 145 MG TAB PO SCH (09:40)
[2020-08-19] MEDS: Ferrous Gluconate 324 MG TAB PO SCH ×2 (09:40→19:46)
[2020-08-19] MEDS: Polyethylene Glycol 3350 17 GM Packet PO SCH (09:41)
[2020-08-19] MEDS: levETIRAcetam 500 mg/5 ml Oral Solution PO SCH ×2 (09:41→19:45)
[2020-08-19] MEDS: Cyclobenzaprine 10 MG TAB PO PRN ×2 (11:43→19:49)
[2020-08-19] MEDS: Acetaminophen/Codeine 30-300mg Tablet PO PRN (15:58)
--- NOTE | 2020-08-19 17:21 | PRG ---
DATE OF SERVICE: 08/19/2020 SUBJECTIVE: Mr. Cisneros is a 74-year-old gentleman, status post ground level fall with left intertrochanteric femur fracture, postop day 9 status post open reduction and internal fixation. The patient is resting in bed comfortably and eating lunch. No acute distress. No overnight events. OBJECTIVE: VITAL SIGNS: Temperature 97.8, pulse 90, respiratory rate 16, O2 saturation on room air 97. GENERAL: Awake, alert, sitting up in bed, eating food. RESPIRATORY: equal breath sounds bilaterally. No accessory muscle use. CARDIAC: Regular rate and rhythm. ABDOMEN: Nontender, soft to palpation. EXTREMITIES: Actively moving extremities. Sensation intact bilaterally. NEUROLOGIC: GCS 14, -1 for confusion. LABORATORY DATA: No new labs. ASSESSMENT: 1. Status post ground level fall. 2. Open reduction and internal fixation of left intertrochanteric femur fracture. Postoperative day 9. 3. Right inferior-superior rami fracture, stable. 4. History of benign prostate hypertrophy, epilepsy, dementia, chronic kidney disease stage 4, history of CVA. PLAN: Continue pain regimen. We will continue all home medications. Continue daily PT, OT. The patient was denied from [facility] due to inappropriate behavior. We are working on placement to [facility]. The patient was seen with Dr. Wolfe at bedside and agrees with assessment and plan. Job ID: [id number] [facility]
[2020-08-19] MEDS: Atorvastatin Calcium 10 MG TAB PO SCH (19:46)
[2020-08-19] MEDS: Montelukast Sodium 10 mg Tablet PO SCH (19:47)
[2020-08-19] MEDS ORDERED: Enoxaparin Sodium 40 MG/0.4 ML SYRINGE SC SCH ×2 (21:00)
[2020-08-20] MEDS: Acetaminophen 325 MG TAB PO SCH ×3 (07:06→17:41)
[2020-08-20] MEDS: Amlodipine 5 MG TAB PO SCH (09:18)
[2020-08-20] MEDS: Gabapentin 100 MG CAP PO SCH ×3 (09:19→19:30)
[2020-08-20] MEDS: Tamsulosin HCl 0.4 MG CAP PO SCH (09:19)
[2020-08-20] MEDS: Lacosamide 50 mg Tablet PO SCH ×2 (09:19→19:32)
[2020-08-20] MEDS: Ferrous Gluconate 324 MG TAB PO SCH ×2 (09:19→19:30)
[2020-08-20] MEDS: Multivitamin W/ Minerals 1 TAB PO SCH (09:19)
[2020-08-20] MEDS: Aspirin 81 mg Enteric Coated Tablet PO SCH ×2 (09:20→19:30)
[2020-08-20] MEDS: Senokot S 8.6-50 MG TAB PO SCH ×2 (09:20→19:41)
[2020-08-20] MEDS: Fenofibrate Nanocrystallized 145 MG TAB PO SCH (09:20)
[2020-08-20] MEDS: Polyethylene Glycol 3350 17 GM Packet PO SCH (09:20)
[2020-08-20] MEDS: levETIRAcetam 500 mg/5 ml Oral Solution PO SCH ×2 (09:20→19:32)
[2020-08-20] MEDS: Cyclobenzaprine 10 MG TAB PO PRN ×2 (12:34→19:30)
[2020-08-20] MEDS: Acetaminophen/Codeine 30-300mg Tablet PO PRN (15:08)
--- NOTE | 2020-08-20 16:35 | PRG ---
DATE OF SERVICE: 08/20/2020 This patient was discussed and evaluated with Dr. Wolfe and he agrees with plan as stated below. SUBJECTIVE: Mr. Cisneros is a 74-year-old gentleman S/P ground level fall with a left IT femur fracture, postoperative day #10, S/P ORIF . He was lying in bed comfortably watching TV. He had his lunch next to him, but he stated he was not hungry. He had taken all of his clothes off, which is the nurses say is something he repeatedly does. He is agreeable to getting out of the hospital, which will hopefully be today. OBJECTIVE: VITAL SIGNS: He has been afebrile. His heart rate has ranged from 87 to 102 beats per minute; which is consistent with the measurements from throughout his stay. His respirations have been 16 to 18 per minute, which is normal. He has been saturating in the upper 90s on room air. His blood pressure has been in the 100 to 120 systolic over 60s to 70s diastolic, which is normal. GENERAL: He is awake, alert, curled up in bed, staring at the TV. RESPIRATORY: No respiratory distress, equal chest rise and fall. CARDIAC: Regular rate and rhythm. ABDOMEN: Nondistended, soft. EXTREMITIES: Is able to move all 4 extremities, but is curled up in a type position. He does not appear to be in pain, but rather this appears to be almost a date of contracture at baseline. LABORATORY DATA: No labs were ordered today. ASSESSMENT: 1. Status post ground level fall. 2. Open reduction internal fixation of left intertrochanteric femur fracture, postoperative day #10. 3. Right inferior-superior rami fracture, stable. 4. History of benign prostatic hypertrophy, epilepsy, dementia, chronic kidney disease, stage 4, history of cerebrovascular accident. PLAN: 1. Continue current pain regimen. 2. Continue daily PT/OT. 3. He is ready for discharge pending placement at [facility] via private pay. Per Case Management, it is expected this will finish being organized today and he could be discharged, but it is possible it may not occur until tomorrow. Job ID: [id number] MTDD
[2020-08-20] MEDS: Montelukast Sodium 10 mg Tablet PO SCH (19:31)
[2020-08-20] MEDS: Atorvastatin Calcium 10 MG TAB PO SCH (19:32)
[2020-08-21] MEDS: Acetaminophen 325 MG TAB PO SCH ×4 (03:10→17:44)
[2020-08-21] MEDS: Multivitamin W/ Minerals 1 TAB PO SCH (08:59)
[2020-08-21] MEDS: Aspirin 81 mg Enteric Coated Tablet PO SCH ×2 (08:59→20:57)
[2020-08-21] MEDS: Gabapentin 100 MG CAP PO SCH ×3 (09:00→20:58)
[2020-08-21] MEDS: Ferrous Gluconate 324 MG TAB PO SCH ×2 (09:01→20:58)
[2020-08-21] MEDS: Tamsulosin HCl 0.4 MG CAP PO SCH (09:01)
[2020-08-21] MEDS: Lacosamide 50 mg Tablet PO SCH ×2 (09:01→20:59)
[2020-08-21] MEDS: Fenofibrate Nanocrystallized 145 MG TAB PO SCH (09:02)
[2020-08-21] MEDS: levETIRAcetam 500 mg/5 ml Oral Solution PO SCH ×2 (09:02→21:00)
[2020-08-21] MEDS: Amlodipine 5 MG TAB PO SCH (09:17)
[2020-08-21] MEDS: Polyethylene Glycol 3350 17 GM Packet PO SCH (11:18)
[2020-08-21] MEDS: Senokot S 8.6-50 MG TAB PO SCH ×2 (11:18→20:57)
--- NOTE | 2020-08-21 20:13 | PRG ---
DATE OF SERVICE: 08/21/2020 SUBJECTIVE: The patient was seen during morning rounds. Awake, alert, in no distress. The patient continues to tolerate a diet. The patient's pain is controlled. The patient had no overnight events. OBJECTIVE: VITAL SIGNS: Temperature 97.2, pulse 88, respirations 16, SpO2 of 95% on room air, blood pressure 117/76. GENERAL: Well-appearing elderly male, awake, alert, in no distress. HEENT: Unremarkable. RESPIRATORY: Good inspiratory and expiratory effort, no distress. EXTREMITIES: Moves all extremities, neurovascularly intact. NEUROLOGIC: No focal deficits, GCS 15. SKIN: Warm, dry, normal color. LABORATORY DATA: No new labs to evaluate today. ASSESSMENT: 1. Status post ground level fall. 2. Open reduction and internal fixation, left intertrochanteric femur fracture, postoperative day #11. 3. Right inferior-superior pubic rami fracture, stable. 4. History of BPH, epilepsy, dementia, chronic kidney disease stage 4, and history of cerebrovascular accident. PLAN: Continue current pain regimen and supportive care. Continue daily PT/OT. The patient is ready for discharge at this time. The patient is pending placement to [facility]. Plan was discussed with the attending, who agrees. Job ID: [id number]
[2020-08-21] MEDS: Atorvastatin Calcium 10 MG TAB PO SCH (20:58)
[2020-08-21] MEDS: Montelukast Sodium 10 mg Tablet PO SCH (20:58)
[2020-08-22] MEDS: Acetaminophen 325 MG TAB PO SCH ×4 (02:03→18:08)
[2020-08-22] MEDS: levETIRAcetam 500 mg/5 ml Oral Solution PO SCH ×2 (08:48→21:48)
[2020-08-22] MEDS: Multivitamin W/ Minerals 1 TAB PO SCH (08:49)
[2020-08-22] MEDS: Tamsulosin HCl 0.4 MG CAP PO SCH (08:49)
[2020-08-22] MEDS: Aspirin 81 mg Enteric Coated Tablet PO SCH ×2 (08:49→21:37)
[2020-08-22] MEDS: Lacosamide 50 mg Tablet PO SCH ×2 (08:49→21:40)
[2020-08-22] MEDS: Senokot S 8.6-50 MG TAB PO SCH ×2 (08:49→20:38)
[2020-08-22] MEDS: Amlodipine 5 MG TAB PO SCH (08:50)
[2020-08-22] MEDS: Ferrous Gluconate 324 MG TAB PO SCH ×2 (08:50→21:39)
[2020-08-22] MEDS: Fenofibrate Nanocrystallized 145 MG TAB PO SCH (08:50)
[2020-08-22] MEDS: Gabapentin 100 MG CAP PO SCH ×3 (08:50→21:37)
[2020-08-22] MEDS: Polyethylene Glycol 3350 17 GM Packet PO SCH (08:51)
--- NOTE | 2020-08-22 11:55 | PRG ---
DATE OF SERVICE: 08/22/2020 SUBJECTIVE: Mr. Cisneros is a 74-year-old male, status post ORIF, internal fixation, left hip. The patient is lying in bed comfortably, in no acute distress, eating breakfast. OBJECTIVE: VITAL SIGNS: Temperature 97.4, pulse 84, O2 saturation 97 on room air, and blood pressure 101/67. GENERAL: Well-appearing, in no acute distress. A and O x2. RESPIRATORY: Speaking full sentences. No respiratory distress. EXTREMITIES: Moving all extremities. Sensation intact. NEUROLOGIC: GCS 14, -1 for confusion. SKIN: Warm, dry, normal color. LABORATORY DATA: No new labs. ASSESSMENT: 1. Status post ground level fall. 2. Open reduction, internal fixation of left intertrochanteric femur fracture, postop day #12. 3. Right inferior-superior pubic rami fracture, stable, nonoperative. 4. BPH, epilepsy, dementia, chronic kidney disease stage 4, history of cerebrovascular accident. Chronic medical condition, stable. PLAN: Continue current pain regimen and supportive care. Continue PT/OT. The patient's information was sent to [facility] for private care. We are awaiting insurance authorization. Job ID: [id number]
[2020-08-22] MEDS: Montelukast Sodium 10 mg Tablet PO SCH (21:39)
[2020-08-22] MEDS: Atorvastatin Calcium 10 MG TAB PO SCH (21:39)
[2020-08-23] MEDS: Acetaminophen 325 MG TAB PO SCH ×5 (02:07→23:47)
[2020-08-23] MEDS: Multivitamin W/ Minerals 1 TAB PO SCH (08:05)
[2020-08-23] MEDS: Fenofibrate Nanocrystallized 145 MG TAB PO SCH (08:05)
[2020-08-23] MEDS: levETIRAcetam 500 mg/5 ml Oral Solution PO SCH ×2 (08:05→21:06)
[2020-08-23] MEDS: Ferrous Gluconate 324 MG TAB PO SCH ×2 (08:05→21:06)
[2020-08-23] MEDS: Tamsulosin HCl 0.4 MG CAP PO SCH (08:05)
[2020-08-23] MEDS: Aspirin 81 mg Enteric Coated Tablet PO SCH ×2 (08:06→21:05)
[2020-08-23] MEDS: Gabapentin 100 MG CAP PO SCH ×3 (08:06→21:06)
[2020-08-23] MEDS: Amlodipine 5 MG TAB PO SCH (08:07)
[2020-08-23] MEDS: Lacosamide 50 mg Tablet PO SCH ×2 (08:07→21:07)
[2020-08-23] MEDS: Polyethylene Glycol 3350 17 GM Packet PO SCH (08:08)
[2020-08-23] MEDS: Senokot S 8.6-50 MG TAB PO SCH ×2 (08:08→19:38)
[2020-08-23] MEDS: Cyclobenzaprine 10 MG TAB PO PRN (13:34)
--- NOTE | 2020-08-23 14:47 | PRG ---
DATE OF SERVICE: 08/23/2020 SUBJECTIVE: Mr. Cisneros is a 74-year-old male, status post ORIF, internal fixation, left hip, postop day #13. The patient has tolerated regular diet. Pain is well controlled. In no acute distress. Eating breakfast in bed. [facility] for private care pending auth. OBJECTIVE: VITAL SIGNS: Temperature 97, pulse 95, respiratory rate 12, O2 saturation 98, blood pressure 107/68. GENERAL: Well appearing, in no acute distress. A and O x2. RESPIRATORY: Speaking full sentences, no respiratory distress. EXTREMITIES: Moving all extremities. Sensation intact bilaterally. NEUROLOGIC: GCS 14, -1 for confusion. SKIN: Warm, dry, and intact. Normal color. LABORATORY DATA: No new labs. IMAGING STUDIES: No new imaging. ASSESSMENT: 1. Status post ground level fall. 2. ORIF, internal fixation of intertrochanteric femur fracture, postop day #13. 3. Right inferior-superior pubic rami fracture, stable, nonoperative. 4. Past medical history of BPH, epilepsy, dementia, chronic kidney disease stage 4, history of cerebrovascular accident, and chronic medical conditions, stable. PLAN: Continue the patient on current medication regimen. Continue PT/OT. pulmonary toilet. [facility] for private care pending auth. We are awaiting insurance authorization. Job ID: [id number] MTDD
[2020-08-23] MEDS: Atorvastatin Calcium 10 MG TAB PO SCH (21:06)
[2020-08-23] MEDS: Montelukast Sodium 10 mg Tablet PO SCH (21:06)
[2020-08-24] MEDS: Acetaminophen 325 MG TAB PO SCH ×2 (05:23→12:15)
[2020-08-24] MEDS: Multivitamin W/ Minerals 1 TAB PO SCH (09:18)
[2020-08-24] MEDS: levETIRAcetam 500 mg/5 ml Oral Solution PO SCH (09:18)
[2020-08-24] MEDS: Gabapentin 100 MG CAP PO SCH (09:18)
[2020-08-24] MEDS: Senokot S 8.6-50 MG TAB PO SCH (09:18)
[2020-08-24] MEDS: Polyethylene Glycol 3350 17 GM Packet PO SCH (09:18)
[2020-08-24] MEDS: Amlodipine 5 MG TAB PO SCH (09:18)
[2020-08-24] MEDS: Fenofibrate Nanocrystallized 145 MG TAB PO SCH (09:18)
[2020-08-24] MEDS: Ferrous Gluconate 324 MG TAB PO SCH (09:19)
[2020-08-24] MEDS: Tamsulosin HCl 0.4 MG CAP PO SCH (09:19)
[2020-08-24] MEDS: Lacosamide 50 mg Tablet PO SCH (09:19)
[2020-08-24] MEDS: Aspirin 81 mg Enteric Coated Tablet PO SCH (09:19)
[2020-08-24 11:43] VITALS: BP 96/53; TEMP 97.6
--- NOTE | 2020-08-24 13:32 | DIS ---
DATE OF ADMISSION: 08/09/2020 DATE OF DISCHARGE: 08/24/2020 ADMISSION DIAGNOSES: 1. Status post fall from bed. 2. Left intertrochanteric femur fracture. 3. Possible right superior-inferior pubic rami fracture. 4. Electrolyte abnormalities, specifically hypomagnesemia and hypophosphatemia. 5. Chronic kidney disease, history of dementia, BPH, epilepsy, transient ischemic attack. CONSULTATIONS: Orthopedics, Dr. Whitney. PROCEDURES: Open reduction and internal fixation of left intertrochanteric femur fracture. HOSPITAL COURSE: The patient is a 74-year-old man, who was residing at the [facility] when he fell out of bed. He was brought to the emergency department, where he underwent evaluation and examination, was noted to have the above injuries. The patient underwent surgical repair and he tolerated that well. He began working with physical and occupational therapy, but was very slow to progress as he was in poor health prior to this fall. He would eventually be discharged to the [facility] to continue care. The patient did have an extended stay at our facility due to placement issues as the facility that he came from denied his return. The patient was eventually able to be placed. At the time of discharge, the patient was tolerating a diet, his bowel and bladder function had resumed, his pain was controlled. He will follow up with Dr. Whitney in 2 weeks, sooner as needed. He needs to follow up with his primary care provider and stick puller regarding his chronic health conditions. Job ID: [id number]
== END 2020-08-24 14:06 | DRG 956 ==
LOC: ERS 17:30 → SURG B 20:16
PROVIDERS: ADMIT Surgery; ATTEND Surgery
PROC: 0QS734Z Reposition Left Upper Femur with Internal Fixation Device, Percutaneous Approach (ICD-10-PCS; principal; 2020-08-10)
DX: S72.142A Displaced intertrochanteric fracture of left femur, initial encounter for closed fracture (principal); S32.591A Other specified fracture of right pubis, initial encounter for closed fracture; N18.4 Chronic kidney disease, stage 4 (severe); F05 Delirium due to known physiological condition; E83.42 Hypomagnesemia; E83.39 Other disorders of phosphorus metabolism; F03.90 Unspecified dementia, unspecified severity, without behavioral disturbance, psychotic disturbance, mood disturbance, and anxiety; N40.0 Benign prostatic hyperplasia without lower urinary tract symptoms; G40.909 Epilepsy, unspecified, not intractable, without status epilepticus; W06.XXXA Fall from bed, initial encounter; E78.5 Hyperlipidemia, unspecified; Y92.122 Bedroom in nursing home as the place of occurrence of the external cause; Z86.73 Personal history of transient ischemic attack (TIA), and cerebral infarction without residual deficits; Z79.899 Other long term (current) drug therapy
CPT/HCPCS: 36415; 36416; 70450; 71045; 72170; 76000; 80048; 80053; 82550; 83735; 84100; 85025; 85610; 85730; 86850; 86900; 86901; 87635; 93005; 93010; 96374; 96375; 96376; C1713; J0690; J0696; J0744; J1650; J2060; J2270; J2405; J2704; J3010; J3475; J3490; J7050; S0020; U0003; U0005

== ENCOUNTER 2020-09-09 13:48 | Inpatient (IN) | payer MEDICARE ==
[2020-09-09] MEDS ORDERED: Fentanyl 100 MCG/2 ML VIAL ONE ×3 (13:57→16:54)
[2020-09-09 15:28] LABS: ALT (SGPT) 24 U/L (8-55); AST (SGOT) 36 U/L (5-34); Albumin 3.8 g/dL (3.4-4.8); Alkaline Phosphatase 84 U/L (40-110); Anion Gap 16 mmol/L (10-20); BUN (Urea Nitrogen) 59 mg/dL (8.4-25.7); Bilirubin, Total 0.5 mg/dL (0.2-1.2); Calc. Creatinine Clearance 0 mL/min (70-130); Carbon Dioxide 22 mmol/L (23-31); Chloride 110 mmol/L (98-107); Globulin 4.3 g/dL (2.4-3.5); Glucose 112 mg/dL (83-110); Potassium 4.3 mmol/L (3.5-5.1); Protein, Total 8.1 g/dL (5.8-8.1); Sodium 144 mmol/L (136-145)
[2020-09-09 15:30] LABS: #Basophils 0.1 thou/uL (0.0-0.2); #Eosinphils 0.2 thou/uL (0.0-0.7); #Monocytes 0.5 thou/uL (0.11-0.59); #Neutrophils 4.9 thou/uL (1.40-6.50); %Basophils 1.2 % (0.0-1.0); %Eosinophils 2.5 % (0.0-10.0); %Neutrophils 63.3 % (42.0-75.0); Hemoglobin 12.9 g/dL (14.0-18.0); Mean Corpuscular HGB CONC 32.7 g/dL (32.0-36.0); Mean Corpuscular Hemoglobin 34.3 pg (27.0-31.0); Mean Platelet Volume 9.5 fL (7.4-10.4); Platelet Count 291 thou/uL (130-400); RBC Distribution Width 13.9 % (11.5-14.5); Red Blood Cell (RBC) Count 3.76 mill/uL (4.70-6.10); White Blood Cell (WBC) Count 7.7 thou/uL (4.8-10.8)
[2020-09-09 15:33] LABS: Calcium 12.2 mg/dL (7.8-10.44)
[2020-09-09 15:50] LABS: MDiff Complete? YES; Macrocytosis SLIGHT = 6-15 cells (100X) (0-5/hpf); Platelet Morphology Comment Appears Adequate; Polychromasia SLIGHT = 2-3 cells (100X) (0-2/hpf)
[2020-09-09 16:13] LABS: SARS-CoV-2 NAA Rapid Test Not Detected (NotDetected)
[2020-09-09] MEDS ORDERED: Lactated Ringer's 1,000 ML IV SCH (16:30)
[2020-09-09] MEDS ORDERED: Ondansetron HCl/PF 4 MG/2 ML Vial IVP PRN (17:06)
[2020-09-09] MEDS ORDERED: Promethazine HCl 25 MG/ML VIAL IM PRN (17:06)
[2020-09-09] MEDS ORDERED: Promethazine HCl 25 MG/ML VIAL SLOW IVP PRN (17:06)
[2020-09-09] MEDS ORDERED: PROPOFOL 200 MG/20 ML VIAL ONE (17:15)
[2020-09-09] MEDS ORDERED: Esmolol 100 MG/10 ML VIAL ONE (17:15)
[2020-09-09] MEDS ORDERED: Glycopyrrolate 0.2 MG/ML 5 ML SYRINGE ONE (17:15)
[2020-09-09] MEDS ORDERED: Lidocaine 1% PF 5 ML VIAL ONE (17:15)
[2020-09-09] MEDS ORDERED: Dexamethasone 20 MG/5 ML VIAL ONE (17:15)
[2020-09-09] MEDS ORDERED: Rocuronium Bromide 10 MG/ML (10ML VIAL) ONE (17:15)
[2020-09-09] MEDS ORDERED: Ondansetron PF 4 MG/2 ML Vial ONE (17:15)
[2020-09-09] MEDS ORDERED: hydrALAZINE 20 MG/ML VIAL SLOW IVP PRN (17:43)
[2020-09-09] MEDS ORDERED: Dextrose 50% Abboject 50 ML SYRINGE SLOW IVP PRN (17:43)
[2020-09-09] MEDS ORDERED: Ondansetron PF 4 MG/2 ML Vial IVP PRN (17:43)
[2020-09-09] MEDS ORDERED: Dextrose 5% in Water 1,000 ML IV PRN (17:43)
[2020-09-09] MEDS ORDERED: Acetaminophen/Codeine 30-300mg Tablet PO PRN (18:41)
[2020-09-09] MEDS ORDERED: Gabapentin 300 MG CAP PO SCH (21:00)
[2020-09-09] MEDS ORDERED: Famotidine/PF 20 mg/2ml Vial SLOW IVP SCH (21:00)
[2020-09-09 21:29] VITALS: BMI 19.7
[2020-09-09] MEDS: Lactated Ringer's 1,000 ML IV SCH (21:36)
[2020-09-09] MEDS: Acetaminophen 325 MG TAB PO SCH (21:36)
[2020-09-09] MEDS: Montelukast Sodium 10 mg Tablet PO SCH (21:51)
[2020-09-09] MEDS: Atorvastatin Calcium 10 MG TAB PO SCH (21:51)
[2020-09-09] MEDS: Lacosamide 50 mg Tablet PO SCH (21:51)
[2020-09-09] MEDS: Senokot S 8.6-50 MG TAB PO SCH (21:51)
[2020-09-10] MEDS: Lactated Ringer's 1,000 ML IV SCH ×4 (00:04→17:10)
[2020-09-10] MEDS: CEFAZOLIN 2 GM in Premix Bag 1 BAG IVPB SCH ×3 (00:04→16:19)
[2020-09-10] MEDS: Acetaminophen 325 MG TAB PO SCH ×5 (00:05→23:28)
[2020-09-10 06:02] LABS: Phosphorus 3.2 mg/dL (2.3-4.7)
[2020-09-10 06:10] LABS: Anion Gap 15 mmol/L (10-20); BUN (Urea Nitrogen) 47 mg/dL (8.4-25.7); Calc. Creatinine Clearance 24 mL/min (70-130); Calcium 11.5 mg/dL (7.8-10.44); Carbon Dioxide 19 mmol/L (23-31); Chloride 112 mmol/L (98-107); Glucose 96 mg/dL (83-110); Magnesium 1.5 mg/dL (1.6-2.6); Sodium 141 mmol/L (136-145)
[2020-09-10 06:25] LABS: #Lymphocytes 2.1 thou/uL (1.20-3.40); #Monocytes 1.4 thou/uL (0.11-0.59); #Neutrophils 7.1 thou/uL (1.40-6.50); %Basophils 0.2 % (0.0-1.0); %Lymphocytes 19.6 % (21.0-51.0); %Monocytes 13.3 % (0.0-10.0); %Neutrophils 66.8 % (42.0-75.0); Hemoglobin 11.2 g/dL (14.0-18.0); Mean Corpuscular HGB CONC 33.1 g/dL (32.0-36.0); Mean Corpuscular Hemoglobin 34.4 pg (27.0-31.0); Mean Platelet Volume 9.6 fL (7.4-10.4); Platelet Count 189 thou/uL (130-400); RBC Distribution Width 13.8 % (11.5-14.5); Red Blood Cell (RBC) Count 3.25 mill/uL (4.70-6.10); White Blood Cell (WBC) Count 10.7 thou/uL (4.8-10.8)
[2020-09-10] MEDS ORDERED: Hydrocortisone Sod Succ/PF 100 mg/2 ml Vial IVP SCH (07:45)
[2020-09-10] MEDS: Polyethylene Glycol 3350 17 GM Packet PO SCH (09:17)
[2020-09-10] MEDS: Tamsulosin HCl 0.4 MG CAP PO SCH (09:27)
[2020-09-10] MEDS: Lacosamide 50 mg Tablet PO SCH ×2 (09:27→21:22)
[2020-09-10] MEDS: Aspirin 81 mg Enteric Coated Tablet PO SCH ×2 (09:28→21:22)
[2020-09-10] MEDS: Senokot S 8.6-50 MG TAB PO SCH ×2 (09:29→21:22)
[2020-09-10] MEDS ORDERED: levETIRAcetam 100 mg/ml Oral Solution PO SCH (10:00)
[2020-09-10] MEDS ORDERED: Magnesium 2 GM/50 ML 2 GM in Premix Bag 1 BAG IVPB SCH (10:15)
[2020-09-10] MEDS: levETIRAcetam 100 mg/ml Oral Solution PO SCH (10:58)
[2020-09-10] MEDS: Acetaminophen/Codeine 30-300mg Tablet PO SCH ×3 (11:53→23:30)
[2020-09-10] MEDS: Hydrocortisone Sod Succ/PF 100 mg/2 ml Vial IVP SCH ×2 (14:06→21:21)
[2020-09-10] MEDS: Fenofibrate Nanocrystallized 145 MG TAB PO SCH (14:08)
[2020-09-10] MEDS: Cyclobenzaprine 10 MG TAB PO PRN (21:19)
[2020-09-10] MEDS: levETIRAcetam 500 mg/5 ml Oral Solution PO SCH (21:21)
[2020-09-10] MEDS: Montelukast Sodium 10 mg Tablet PO SCH (21:22)
[2020-09-10] MEDS: Atorvastatin Calcium 10 MG TAB PO SCH (21:22)
[2020-09-11] MEDS: Lactated Ringer's 1,000 ML IV SCH (02:07)
[2020-09-11] MEDS: Acetaminophen 325 MG TAB PO SCH ×4 (04:08→23:22)
[2020-09-11] MEDS: Acetaminophen/Codeine 30-300mg Tablet PO SCH ×4 (04:09→23:21)
[2020-09-11] MEDS: Cyclobenzaprine 10 MG TAB PO PRN ×2 (06:27→21:49)
[2020-09-11] MEDS: Hydrocortisone Sod Succ/PF 100 mg/2 ml Vial IVP SCH (06:27)
[2020-09-11] MEDS: Senokot S 8.6-50 MG TAB PO SCH ×2 (09:32→21:49)
[2020-09-11] MEDS: levETIRAcetam 500 mg/5 ml Oral Solution PO SCH ×2 (09:32→21:48)
[2020-09-11] MEDS: Lacosamide 50 mg Tablet PO SCH ×2 (09:32→21:49)
[2020-09-11] MEDS: Tamsulosin HCl 0.4 MG CAP PO SCH (09:32)
[2020-09-11] MEDS: Polyethylene Glycol 3350 17 GM Packet PO SCH (09:32)
[2020-09-11] MEDS: Aspirin 81 mg Enteric Coated Tablet PO SCH ×2 (09:32→21:49)
[2020-09-11] MEDS: Fenofibrate Nanocrystallized 145 MG TAB PO SCH (17:40)
[2020-09-11] MEDS: Atorvastatin Calcium 10 MG TAB PO SCH (21:49)
[2020-09-11] MEDS: Montelukast Sodium 10 mg Tablet PO SCH (21:49)
[2020-09-12] MEDS: Acetaminophen/Codeine 30-300mg Tablet PO SCH ×4 (05:38→23:58)
[2020-09-12] MEDS: Acetaminophen 325 MG TAB PO SCH ×3 (05:39→17:21)
[2020-09-12] MEDS ORDERED: Milk Of Magnesia 30 ML UDCUP PO ONE (08:23)
[2020-09-12] MEDS: Aspirin 81 mg Enteric Coated Tablet PO SCH ×2 (09:15→21:47)
[2020-09-12] MEDS: Lacosamide 50 mg Tablet PO SCH ×2 (09:17→21:47)
[2020-09-12] MEDS: Cyclobenzaprine 10 MG TAB PO PRN (09:17)
[2020-09-12] MEDS: levETIRAcetam 500 mg/5 ml Oral Solution PO SCH ×2 (09:17→21:48)
[2020-09-12] MEDS: Tamsulosin HCl 0.4 MG CAP PO SCH (09:18)
[2020-09-12] MEDS: Polyethylene Glycol 3350 17 GM Packet PO SCH (09:18)
[2020-09-12] MEDS: Senokot S 8.6-50 MG TAB PO SCH ×2 (09:18→21:47)
[2020-09-12] MEDS: Fenofibrate Nanocrystallized 145 MG TAB PO SCH (09:37)
[2020-09-12] MEDS ORDERED: Milk Of Magnesia 30 ML UDCUP PO PRN (12:20)
[2020-09-12] MEDS: Atorvastatin Calcium 10 MG TAB PO SCH (21:47)
[2020-09-12] MEDS: Montelukast Sodium 10 mg Tablet PO SCH (21:47)
[2020-09-13] MEDS: Acetaminophen/Codeine 30-300mg Tablet PO SCH ×2 (06:13→11:00)
[2020-09-13] MEDS: Acetaminophen 325 MG TAB PO SCH ×5 (06:14→23:52)
[2020-09-13] MEDS: levETIRAcetam 500 mg/5 ml Oral Solution PO SCH ×2 (08:01→20:48)
[2020-09-13] MEDS: Lacosamide 50 mg Tablet PO SCH ×2 (08:05→20:50)
[2020-09-13] MEDS: Tamsulosin HCl 0.4 MG CAP PO SCH (08:06)
[2020-09-13] MEDS: Aspirin 81 mg Enteric Coated Tablet PO SCH ×2 (08:06→20:48)
[2020-09-13] MEDS: Senokot S 8.6-50 MG TAB PO SCH ×2 (08:06→20:48)
[2020-09-13] MEDS: Polyethylene Glycol 3350 17 GM Packet PO SCH (08:06)
[2020-09-13] MEDS: Fenofibrate Nanocrystallized 145 MG TAB PO SCH (08:06)
[2020-09-13] MEDS ORDERED: Acetaminophen/Codeine 30-300mg Tablet PO PRN (14:54)
[2020-09-13] MEDS: Atorvastatin Calcium 10 MG TAB PO SCH (20:48)
[2020-09-13] MEDS: Montelukast Sodium 10 mg Tablet PO SCH (20:48)
[2020-09-14] MEDS: Acetaminophen 325 MG TAB PO SCH ×3 (06:24→17:06)
[2020-09-14] MEDS: levETIRAcetam 500 mg/5 ml Oral Solution PO SCH ×2 (09:58→19:42)
[2020-09-14] MEDS: Fenofibrate Nanocrystallized 145 MG TAB PO SCH (09:58)
[2020-09-14] MEDS: Lacosamide 50 mg Tablet PO SCH ×2 (09:59→19:41)
[2020-09-14] MEDS: Aspirin 81 mg Enteric Coated Tablet PO SCH ×2 (09:59→19:40)
[2020-09-14] MEDS: Senokot S 8.6-50 MG TAB PO SCH ×2 (09:59→20:47)
[2020-09-14] MEDS: Tamsulosin HCl 0.4 MG CAP PO SCH (09:59)
[2020-09-14] MEDS: Polyethylene Glycol 3350 17 GM Packet PO SCH (10:00)
[2020-09-14] MEDS: Atorvastatin Calcium 10 MG TAB PO SCH (19:40)
[2020-09-14] MEDS: Montelukast Sodium 10 mg Tablet PO SCH (19:41)
[2020-09-15] MEDS: Acetaminophen 325 MG TAB PO SCH ×4 (00:38→16:21)
[2020-09-15] MEDS: Cyclobenzaprine 10 MG TAB PO PRN (03:55)
[2020-09-15] MEDS: levETIRAcetam 500 mg/5 ml Oral Solution PO SCH (09:27)
[2020-09-15] MEDS: Aspirin 81 mg Enteric Coated Tablet PO SCH (09:27)
[2020-09-15] MEDS: Senokot S 8.6-50 MG TAB PO SCH (09:28)
[2020-09-15] MEDS: Tamsulosin HCl 0.4 MG CAP PO SCH (09:28)
[2020-09-15] MEDS: Lacosamide 50 mg Tablet PO SCH (09:28)
[2020-09-15] MEDS: Polyethylene Glycol 3350 17 GM Packet PO SCH (09:28)
[2020-09-15] MEDS: Fenofibrate Nanocrystallized 145 MG TAB PO SCH (09:28)
[2020-09-15 16:07] VITALS: BP 110/71; TEMP 98.1
== END 2020-09-15 18:10 | DRG 481 ==
LOC: ERS 13:48 → SDC 16:47 → SURG A 17:43
PROVIDERS: ADMIT Specialist; ATTEND Specialist
PROC: 0QSC04Z Reposition Left Lower Femur with Internal Fixation Device, Open Approach (ICD-10-PCS; principal; 2020-09-09)
DX: S72.402A Unspecified fracture of lower end of left femur, initial encounter for closed fracture (principal); N17.9 Acute kidney failure, unspecified; N18.4 Chronic kidney disease, stage 4 (severe); W06.XXXA Fall from bed, initial encounter; Z20.822 Contact with and (suspected) exposure to COVID-19; E83.52 Hypercalcemia; I12.9 Hypertensive chronic kidney disease with stage 1 through stage 4 chronic kidney disease, or unspecified chronic kidney disease; N40.0 Benign prostatic hyperplasia without lower urinary tract symptoms; G40.909 Epilepsy, unspecified, not intractable, without status epilepticus; E78.5 Hyperlipidemia, unspecified; F03.90 Unspecified dementia, unspecified severity, without behavioral disturbance, psychotic disturbance, mood disturbance, and anxiety; K59.00 Constipation, unspecified; Z86.73 Personal history of transient ischemic attack (TIA), and cerebral infarction without residual deficits; Z79.899 Other long term (current) drug therapy; Z79.82 Long term (current) use of aspirin
CPT/HCPCS: 36415; 70450; 71045; 72125; 72170; 76000; 80048; 82533; 83735; 84100; 85025; 86850; 86900; 86901; 87635; 93005; 96374; 96376; C1713; G0390; J0690; J1100; J1720; J2405; J2704; J3010; J3475; S0028; U0002; U0003; U0005

== ENCOUNTER 2020-10-01 12:46 | Inpatient (IN) | payer MEDICARE ==
[2020-10-01 13:26] LABS: Hemoglobin 8.9 g/dL (14.0-18.0); Mean Corpuscular HGB CONC 31.6 g/dL (32.0-36.0); Mean Corpuscular Hemoglobin 33.1 pg (27.0-31.0); Mean Platelet Volume 8.2 fL (7.4-10.4); Platelet Count 350 thou/uL (130-400); Red Blood Cell (RBC) Count 2.69 mill/uL (4.70-6.10); White Blood Cell (WBC) Count 10.8 thou/uL (4.8-10.8)
[2020-10-01 13:41] LABS: ALT (SGPT) 12 U/L (8-55); AST (SGOT) 37 U/L (5-34); Alkaline Phosphatase 67 U/L (40-110); Anion Gap 19 mmol/L (10-20); BUN (Urea Nitrogen) 68 mg/dL (8.4-25.7); Bilirubin, Total 0.5 mg/dL (0.2-1.2); Calc. Creatinine Clearance 0 mL/min (70-130); Calcium 9.9 mg/dL (7.8-10.44); Carbon Dioxide 18 mmol/L (23-31); Chloride 105 mmol/L (98-107); Glucose 103 mg/dL (83-110); Sodium 138 mmol/L (136-145)
[2020-10-01 13:44] LABS: Anisocytosis SLIGHT = 6-15 cells (100X) (0-5/hpf); Eosinophils 1 % (0-10); Hypochromia SLIGHT = 6-15 cells (100X) (0-5/hpf); Lymphocytes 20 % (21-51); MDiff Complete? YES; Monocytes 14 % (0-10); Neutrophil 65 % (42-75); Platelet Morphology Comment Appears Adequate
[2020-10-01] MEDS ORDERED: Morphine 4 MG/ML VIAL ONE (14:32)
[2020-10-01 15:12] LABS: Bilirubin Negative (Negative); Blood, Urine Negative (Negative); Clarity Clear (Clear); Glucose, Urine (Dipstick) Normal (Negative); Ketone, Urine Negative (Negative); Leukocyte 75 Leu/uL (Negative); Nitrite Negative (Negative); Protein, Urine (Dipstick) 70 mg/dL (Neg-Trace); RBC/HPF 0-3 HPF (0-3); Specific Gravity, Urine 1.014 (1.002-1.036); Squamous Epithelial None Seen HPF (0-3); Urobilinogen Normal mg/dL (Less than 2); pH, Urine 5.5 (5.0-9.0)
[2020-10-01 15:13] LABS: Bacteria/HPF 1+ HPF (None Seen)
[2020-10-01] MEDS ORDERED: Guaifenesin DM 100-10/5 ML UDCUP PO PRN (17:02)
[2020-10-01] MEDS ORDERED: Ondansetron ODT 4 MG TAB PO PRN (17:02)
[2020-10-01] MEDS ORDERED: Ondansetron PF 4 MG/2 ML Vial IVP PRN (17:02)
[2020-10-01] MEDS ORDERED: Loperamide HCl 2 MG CAP PO PRN (17:02)
[2020-10-01] MEDS ORDERED: Calcium Carbonate 500 MG ChewTAB PO PRN (17:02)
[2020-10-01] MEDS ORDERED: Sodium Chloride 0.45% 1,000 ML IV SCH (17:15)
[2020-10-01] MEDS ORDERED: cefTRIAXone\\ROCEPHIN 1 GM VIAL ONE (17:49)
[2020-10-01] MEDS ORDERED: levETIRAcetam 100 mg/ml Oral Solution PO SCH (21:00)
[2020-10-01] MEDS: Lacosamide 50 mg Tablet PO SCH (21:01)
[2020-10-01] MEDS: Heparin 5,000 UNITS/ML VIAL SC SCH (21:01)
[2020-10-01] MEDS: Atorvastatin Calcium 10 MG TAB PO SCH (21:01)
[2020-10-01] MEDS: levETIRAcetam 500 mg/5 ml Oral Solution PO SCH (21:01)
[2020-10-01] MEDS: Acetaminophen 325 MG TAB PO PRN (21:01)
[2020-10-01] MEDS: Zolpidem Tartrate 5 MG TAB PO PRN (21:30)
[2020-10-01] MEDS: Melatonin 3 MG TAB PO PRN (22:27)
[2020-10-02 04:35] LABS: #Eosinphils 0.1 thou/uL (0.0-0.7); #Lymphocytes 1.5 thou/uL (1.20-3.40); #Monocytes 1.2 thou/uL (0.11-0.59); #Neutrophils 5.4 thou/uL (1.40-6.50); %Basophils 0.5 % (0.0-1.0); %Eosinophils 0.7 % (0.0-10.0); %Monocytes 14.9 % (0.0-10.0); %Neutrophils 65.9 % (42.0-75.0); Hemoglobin 8.4 g/dL (14.0-18.0); Mean Corpuscular HGB CONC 32.5 g/dL (32.0-36.0); Mean Platelet Volume 8.8 fL (7.4-10.4); Platelet Count 306 thou/uL (130-400); RBC Distribution Width 13.1 % (11.5-14.5); Red Blood Cell (RBC) Count 2.46 mill/uL (4.70-6.10); White Blood Cell (WBC) Count 8.2 thou/uL (4.8-10.8)
[2020-10-02 04:35] LABS: SARS-CoV-2 PCR by NAA Not Detected (NotDetected)
[2020-10-02 05:00] LABS: ALT (SGPT) 10 U/L (8-55); AST (SGOT) 33 U/L (5-34); Albumin 2.7 g/dL (3.4-4.8); Alkaline Phosphatase 62 U/L (40-110); Anion Gap 18 mmol/L (10-20); BUN (Urea Nitrogen) 61 mg/dL (8.4-25.7); Bilirubin, Total 0.4 mg/dL (0.2-1.2); Calc. Creatinine Clearance 11 mL/min (70-130); Calcium 9.4 mg/dL (7.8-10.44); Carbon Dioxide 16 mmol/L (23-31); Chloride 112 mmol/L (98-107); Globulin 3.6 g/dL (2.4-3.5); Glucose 77 mg/dL (83-110); Phosphorus 5.2 mg/dL (2.3-4.7); Potassium 3.9 mmol/L (3.5-5.1); Protein, Total 6.3 g/dL (5.8-8.1); Sodium 142 mmol/L (136-145)
[2020-10-02 08:07] LABS: Creatinine, Urine 22.65 mg/dL (63-166)
[2020-10-02] MEDS: Famotidine 20 MG TAB PO SCH (08:46)
[2020-10-02] MEDS: Folic Acid 1 MG TAB PO SCH (08:47)
[2020-10-02] MEDS: Heparin 5,000 UNITS/ML VIAL SC SCH ×2 (08:47→21:00)
[2020-10-02] MEDS: Tamsulosin HCl 0.4 MG CAP PO SCH (08:47)
[2020-10-02] MEDS: Cyanocobalamin (Vitamin B-12) 1,000 MCG TAB PO SCH (08:47)
[2020-10-02] MEDS: levETIRAcetam 500 mg/5 ml Oral Solution PO SCH ×2 (08:48→21:00)
[2020-10-02] MEDS: Sodium Bicarbonate 150 MEQ in Dextrose 5% in Water 1,000 ML IV SCH ×2 (08:48→21:00)
[2020-10-02] MEDS: Lacosamide 50 mg Tablet PO SCH ×2 (08:48→20:59)
[2020-10-02] MEDS ORDERED: Amlodipine 5 MG TAB PO SCH ×2 (09:00→15:45)
[2020-10-02] MEDS: Atorvastatin Calcium 10 MG TAB PO SCH (20:59)
[2020-10-02] MEDS: Aspirin 81 mg Enteric Coated Tablet PO SCH (20:59)
[2020-10-02] MEDS: Acetaminophen 325 MG TAB PO PRN (20:59)
[2020-10-02] MEDS ORDERED: OLANZapine 10 MG VIAL IM SCH (22:30)
[2020-10-02] MEDS ORDERED: traZODone HCl 50 MG TAB PO SCH (22:45)
[2020-10-03] MEDS: HYDROcodone/Acetaminophen 5/325 mg Tablet PO PRN ×2 (00:29→20:54)
[2020-10-03 07:00] LABS: Hemoglobin 8.5 g/dL (14.0-18.0); Mean Corpuscular HGB CONC 31.3 g/dL (32.0-36.0); Mean Corpuscular Hemoglobin 32.2 pg (27.0-31.0); Mean Platelet Volume 7.9 fL (7.4-10.4); Platelet Count 372 thou/uL (130-400); RBC Distribution Width 13.1 % (11.5-14.5); Red Blood Cell (RBC) Count 2.63 mill/uL (4.70-6.10)
[2020-10-03 07:35] LABS: Albumin 2.7 g/dL (3.4-4.8); Anion Gap 16 mmol/L (10-20); BUN (Urea Nitrogen) 52 mg/dL (8.4-25.7); BUN/Creatinine Ratio 13.94; Calc. Creatinine Clearance 14 mL/min (70-130); Calcium 8.9 mg/dL (7.8-10.44); Carbon Dioxide 32 mmol/L (23-31); Chloride 102 mmol/L (98-107); Glucose 128 mg/dL (83-110); Phosphorus 4.1 mg/dL (2.3-4.7); Potassium 2.7 mmol/L (3.5-5.1); Sodium 147 mmol/L (136-145)
[2020-10-03] MEDS ORDERED: Potassium Chloride 20 MEQ TAB PO SCH ×2 (08:00→18:15)
[2020-10-03] MEDS ORDERED: Tamsulosin HCl 0.4 MG CAP PO SCH (09:00)
[2020-10-03] MEDS: Famotidine 20 MG TAB PO SCH (09:15)
[2020-10-03] MEDS: Aspirin 81 mg Enteric Coated Tablet PO SCH (09:15)
[2020-10-03] MEDS: Tamsulosin HCl 0.4 MG CAP PO SCH (09:15)
[2020-10-03] MEDS: Cyanocobalamin (Vitamin B-12) 1,000 MCG TAB PO SCH (09:16)
[2020-10-03] MEDS: Folic Acid 1 MG TAB PO SCH (09:16)
[2020-10-03] MEDS: Amlodipine 5 MG TAB PO SCH (09:16)
[2020-10-03] MEDS: levETIRAcetam 500 mg/5 ml Oral Solution PO SCH ×2 (09:16→20:49)
[2020-10-03] MEDS: Lacosamide 50 mg Tablet PO SCH ×2 (09:21→20:49)
[2020-10-03] MEDS: Heparin 5,000 UNITS/ML VIAL SC SCH ×2 (09:22→20:55)
[2020-10-03] MEDS: Sodium Bicarbonate 150 MEQ in Dextrose 5% in Water 1,000 ML IV SCH (10:15)
[2020-10-03] MEDS: Lactated Ringer's 1,000 ML IV SCH (12:02)
[2020-10-03] MEDS: Cyclobenzaprine 10 MG TAB PO PRN (12:15)
[2020-10-03 15:12] LABS: Anion Gap 18 mmol/L (10-20); BUN (Urea Nitrogen) 47 mg/dL (8.4-25.7); Calc. Creatinine Clearance 15 mL/min (70-130); Calcium 8.9 mg/dL (7.8-10.44); Carbon Dioxide 29 mmol/L (23-31); Chloride 101 mmol/L (98-107); Glucose 154 mg/dL (83-110); Sodium 145 mmol/L (136-145)
[2020-10-03 15:17] LABS: Potassium 2.9 mmol/L (3.5-5.1)
[2020-10-03] MEDS ORDERED: cloNIDine 0.1 MG TAB PO PRN (18:20)
[2020-10-03] MEDS ORDERED: Magnesium Sulfate 4 GM in Sodium Chloride 0.9% 250 ML 250 ML IVPB SCH (20:30)
[2020-10-03] MEDS: Zolpidem Tartrate 5 MG TAB PO PRN (20:54)
[2020-10-03] MEDS: Atorvastatin Calcium 10 MG TAB PO SCH (20:55)
[2020-10-03] MEDS: Aspirin Chewable 81 MG TAB PO SCH (20:55)
[2020-10-03] MEDS: Magnesium 2 GM/50 ML 2 GM in Premix Bag 1 BAG IVPB SCH ×2 (21:03→22:04)
[2020-10-04] MEDS: Lactated Ringer's 1,000 ML IV SCH ×4 (00:22→23:34)
[2020-10-04 04:39] LABS: Hemoglobin 10.1 g/dL (14.0-18.0); Mean Corpuscular HGB CONC 32.7 g/dL (32.0-36.0); Mean Corpuscular Hemoglobin 33.9 pg (27.0-31.0); Mean Platelet Volume 8.3 fL (7.4-10.4); Platelet Count 392 thou/uL (130-400); RBC Distribution Width 13.4 % (11.5-14.5); Red Blood Cell (RBC) Count 2.96 mill/uL (4.70-6.10); White Blood Cell (WBC) Count 8.5 thou/uL (4.8-10.8)
[2020-10-04 05:01] LABS: Albumin 3.1 g/dL (3.4-4.8); Anion Gap 19 mmol/L (10-20); BUN (Urea Nitrogen) 43 mg/dL (8.4-25.7); BUN/Creatinine Ratio 14.29; Calc. Creatinine Clearance 17 mL/min (70-130); Calcium 9.9 mg/dL (7.8-10.44); Carbon Dioxide 24 mmol/L (23-31); Chloride 103 mmol/L (98-107); Glucose 79 mg/dL (83-110); Phosphorus 3.3 mg/dL (2.3-4.7); Potassium 3.3 mmol/L (3.5-5.1); Sodium 143 mmol/L (136-145)
[2020-10-04 05:02] LABS: Iron 17 ug/dL (65-175); Iron Binding Capacity, Total 214 mcg/dL (261-462)
[2020-10-04 05:28] LABS: Ferritin 595.22 ng/mL (22-322)
[2020-10-04] MEDS ORDERED: Potassium Chloride 20 MEQ TAB PO SCH (05:30)
[2020-10-04] MEDS ORDERED: Iron Sucrose Complex 200 MG in Sodium Chloride 0.9% 100 ML IVPB SCH (09:00)
[2020-10-04] MEDS: Aspirin Chewable 81 MG TAB PO SCH ×2 (10:07→20:57)
[2020-10-04] MEDS: Amlodipine 5 MG TAB PO SCH (10:07)
[2020-10-04] MEDS: Tamsulosin HCl 0.4 MG CAP PO SCH (10:08)
[2020-10-04] MEDS: Folic Acid 1 MG TAB PO SCH (10:08)
[2020-10-04] MEDS: Lacosamide 50 mg Tablet PO SCH ×3 (10:08→20:58)
[2020-10-04] MEDS: Cyanocobalamin (Vitamin B-12) 1,000 MCG TAB PO SCH (10:08)
[2020-10-04] MEDS: Famotidine 20 MG TAB PO SCH (10:08)
[2020-10-04] MEDS: levETIRAcetam 500 mg/5 ml Oral Solution PO SCH ×2 (10:08→20:57)
[2020-10-04] MEDS: Heparin 5,000 UNITS/ML VIAL SC SCH ×2 (10:09→20:57)
[2020-10-04] MEDS: Iron, Sodium Ferric Gluconate 250 MG in Sodium Chloride 0.9% 100 ML IVPB SCH (10:09)
[2020-10-04] MEDS: Zolpidem Tartrate 5 MG TAB PO PRN (20:56)
[2020-10-04] MEDS: Atorvastatin Calcium 10 MG TAB PO SCH (20:57)
[2020-10-05] MEDS: HYDROcodone/Acetaminophen 5/325 mg Tablet PO PRN ×2 (02:31→20:14)
[2020-10-05 04:24] LABS: Hemoglobin 8.2 g/dL (14.0-18.0); Mean Corpuscular HGB CONC 31.1 g/dL (32.0-36.0); Mean Corpuscular Hemoglobin 31.5 pg (27.0-31.0); Mean Platelet Volume 7.9 fL (7.4-10.4); Platelet Count 359 thou/uL (130-400); RBC Distribution Width 13.4 % (11.5-14.5); Red Blood Cell (RBC) Count 2.59 mill/uL (4.70-6.10); White Blood Cell (WBC) Count 7.4 thou/uL (4.8-10.8)
[2020-10-05 04:42] LABS: Albumin 2.6 g/dL (3.4-4.8); Anion Gap 14 mmol/L (10-20); BUN (Urea Nitrogen) 37 mg/dL (8.4-25.7); Calc. Creatinine Clearance 21 mL/min (70-130); Calcium 9.7 mg/dL (7.8-10.44); Carbon Dioxide 25 mmol/L (23-31); Chloride 105 mmol/L (98-107); Glucose 91 mg/dL (83-110); Sodium 141 mmol/L (136-145)
[2020-10-05 04:55] LABS: Potassium 2.8 mmol/L (3.5-5.1)
[2020-10-05] MEDS ORDERED: Electrolyte Replacement Protocol 1 EACH FS PRN (05:46)
[2020-10-05] MEDS ORDERED: Potassium Chloride 20 MEQ TAB PO SCH (06:15)
[2020-10-05] MEDS: Amlodipine 5 MG TAB PO SCH (09:33)
[2020-10-05] MEDS: Cyanocobalamin (Vitamin B-12) 1,000 MCG TAB PO SCH (09:33)
[2020-10-05] MEDS: Tamsulosin HCl 0.4 MG CAP PO SCH (09:33)
[2020-10-05] MEDS: Folic Acid 1 MG TAB PO SCH (09:34)
[2020-10-05] MEDS: levETIRAcetam 500 mg/5 ml Oral Solution PO SCH ×2 (09:34→20:14)
[2020-10-05] MEDS: Famotidine 20 MG TAB PO SCH (09:34)
[2020-10-05] MEDS: Heparin 5,000 UNITS/ML VIAL SC SCH ×2 (09:34→20:14)
[2020-10-05] MEDS: Aspirin Chewable 81 MG TAB PO SCH ×2 (09:34→20:13)
[2020-10-05] MEDS: Acetaminophen 325 MG TAB PO PRN (09:34)
[2020-10-05] MEDS: Lacosamide 50 mg Tablet PO SCH ×2 (09:35→20:13)
[2020-10-05] MEDS: Potassium Chloride 20 MEQ TAB PO SCH ×3 (09:47→20:13)
[2020-10-05] MEDS ORDERED: Magnesium 2 GM/50 ML 2 GM in Premix Bag 1 BAG IVPB SCH (12:45)
[2020-10-05] MEDS: Iron, Sodium Ferric Gluconate 250 MG in Sodium Chloride 0.9% 100 ML IVPB SCH (12:52)
[2020-10-05] MEDS: Lactated Ringer's 1,000 ML IV SCH ×3 (17:21→20:14)
[2020-10-05] MEDS ORDERED: OLANZapine 10 MG VIAL IM SCH (19:45)
[2020-10-05] MEDS ORDERED: Sterile Water 10 ML VIAL FS SCH (19:45)
[2020-10-05] MEDS: Atorvastatin Calcium 10 MG TAB PO SCH (20:13)
[2020-10-06 04:47] LABS: Hemoglobin 8.7 g/dL (14.0-18.0); Mean Corpuscular HGB CONC 31.3 g/dL (32.0-36.0); Mean Corpuscular Hemoglobin 31.8 pg (27.0-31.0); Mean Platelet Volume 8.6 fL (7.4-10.4); Platelet Count 389 thou/uL (130-400); RBC Distribution Width 13.9 % (11.5-14.5); Red Blood Cell (RBC) Count 2.73 mill/uL (4.70-6.10); White Blood Cell (WBC) Count 9.3 thou/uL (4.8-10.8)
[2020-10-06 05:08] LABS: Albumin 2.8 g/dL (3.4-4.8); Anion Gap 15 mmol/L (10-20); BUN (Urea Nitrogen) 30 mg/dL (8.4-25.7); BUN/Creatinine Ratio 14.63; Calc. Creatinine Clearance 25 mL/min (70-130); Calcium 10.4 mg/dL (7.8-10.44); Carbon Dioxide 20 mmol/L (23-31); Chloride 110 mmol/L (98-107); Glucose 87 mg/dL (83-110); Magnesium 1.7 mg/dL (1.6-2.6); Phosphorus 2.5 mg/dL (2.3-4.7); Potassium 4.4 mmol/L (3.5-5.1); Sodium 141 mmol/L (136-145)
[2020-10-06] MEDS: Lacosamide 50 mg Tablet PO SCH ×2 (09:50→22:23)
[2020-10-06] MEDS: Amlodipine 5 MG TAB PO SCH (09:51)
[2020-10-06] MEDS: Tamsulosin HCl 0.4 MG CAP PO SCH (09:51)
[2020-10-06] MEDS: Heparin 5,000 UNITS/ML VIAL SC SCH ×2 (09:51→22:23)
[2020-10-06] MEDS: Cyanocobalamin (Vitamin B-12) 1,000 MCG TAB PO SCH (09:51)
[2020-10-06] MEDS: Aspirin Chewable 81 MG TAB PO SCH ×2 (09:51→22:23)
[2020-10-06] MEDS: Sodium Bicarbonate Tab 325 MG TAB PO SCH ×2 (09:52→22:23)
[2020-10-06] MEDS: levETIRAcetam 500 mg/5 ml Oral Solution PO SCH ×2 (09:52→22:23)
[2020-10-06] MEDS: Famotidine 20 MG TAB PO SCH (09:52)
[2020-10-06] MEDS: Folic Acid 1 MG TAB PO SCH (09:52)
[2020-10-06] MEDS: Lactated Ringer's 1,000 ML IV SCH ×3 (09:55→22:44)
[2020-10-06] MEDS: Iron, Sodium Ferric Gluconate 250 MG in Sodium Chloride 0.9% 100 ML IVPB SCH (09:57)
[2020-10-06] MEDS: Zolpidem Tartrate 5 MG TAB PO PRN (13:17)
[2020-10-06] MEDS: Atorvastatin Calcium 10 MG TAB PO SCH (22:23)
[2020-10-06] MEDS: Melatonin 3 MG TAB PO PRN (22:43)
[2020-10-07] MEDS: HYDROcodone/Acetaminophen 5/325 mg Tablet PO PRN (01:45)
[2020-10-07 05:34] LABS: Albumin 2.7 g/dL (3.4-4.8); Anion Gap 14 mmol/L (10-20); BUN (Urea Nitrogen) 25 mg/dL (8.4-25.7); BUN/Creatinine Ratio 13.09; Calc. Creatinine Clearance 27 mL/min (70-130); Calcium 10.6 mg/dL (7.8-10.44); Carbon Dioxide 24 mmol/L (23-31); Chloride 106 mmol/L (98-107); Glucose 93 mg/dL (83-110); Potassium 3.7 mmol/L (3.5-5.1); Sodium 140 mmol/L (136-145)
[2020-10-07] MEDS ORDERED: Acetaminophen 650 MG Suppository PR PRN (06:49)
[2020-10-07] MEDS: levETIRAcetam 500 mg/5 ml Oral Solution PO SCH ×3 (10:08→20:21)
[2020-10-07] MEDS: EPOETIN ALFA-EPBX (ESRD) 10,000 UNIT/ML VIAL SC SCH ×2 (10:08→14:19)
[2020-10-07] MEDS: Lacosamide 50 mg Tablet PO SCH ×3 (10:08→20:21)
[2020-10-07] MEDS: Heparin 5,000 UNITS/ML VIAL SC SCH ×3 (10:08→20:21)
[2020-10-07] MEDS: Folic Acid 1 MG TAB PO SCH ×2 (10:09→10:26)
[2020-10-07] MEDS: Sodium Bicarbonate Tab 325 MG TAB PO SCH ×3 (10:09→20:21)
[2020-10-07] MEDS: Tamsulosin HCl 0.4 MG CAP PO SCH ×2 (10:09→10:27)
[2020-10-07] MEDS: Famotidine 20 MG TAB PO SCH ×2 (10:09→10:26)
[2020-10-07] MEDS: Cyanocobalamin (Vitamin B-12) 1,000 MCG TAB PO SCH ×2 (10:09→10:26)
[2020-10-07] MEDS: Aspirin Chewable 81 MG TAB PO SCH ×3 (10:09→20:21)
[2020-10-07] MEDS: Amlodipine 5 MG TAB PO SCH ×2 (10:09→14:09)
[2020-10-07] MEDS: Lactated Ringer's 1,000 ML IV SCH (10:13)
[2020-10-07] MEDS: Atorvastatin Calcium 10 MG TAB PO SCH (20:21)
[2020-10-08] MEDS: Acetaminophen 325 MG TAB PO PRN (01:05)
[2020-10-08 05:19] LABS: Albumin 2.7 g/dL (3.4-4.8); Anion Gap 12 mmol/L (10-20); BUN (Urea Nitrogen) 31 mg/dL (8.4-25.7); BUN/Creatinine Ratio 13.54; Calc. Creatinine Clearance 22 mL/min (70-130); Calcium 10.5 mg/dL (7.8-10.44); Carbon Dioxide 26 mmol/L (23-31); Chloride 103 mmol/L (98-107); Glucose 88 mg/dL (83-110); Phosphorus 3.5 mg/dL (2.3-4.7); Potassium 3.2 mmol/L (3.5-5.1); Sodium 138 mmol/L (136-145)
[2020-10-08] MEDS ORDERED: Potassium Chloride 20 MEQ TAB PO SCH (06:15)
[2020-10-08] MEDS: Lactated Ringer's 1,000 ML IV SCH ×2 (06:34→17:18)
[2020-10-08] MEDS: Sodium Bicarbonate Tab 325 MG TAB PO SCH ×2 (08:46→21:13)
[2020-10-08] MEDS: Amlodipine 5 MG TAB PO SCH (08:47)
[2020-10-08] MEDS: Famotidine 20 MG TAB PO SCH (08:47)
[2020-10-08] MEDS: Lacosamide 50 mg Tablet PO SCH ×2 (08:47→21:15)
[2020-10-08] MEDS: Aspirin Chewable 81 MG TAB PO SCH ×2 (08:47→21:11)
[2020-10-08] MEDS: Heparin 5,000 UNITS/ML VIAL SC SCH ×2 (08:47→21:21)
[2020-10-08] MEDS: Folic Acid 1 MG TAB PO SCH (08:47)
[2020-10-08] MEDS: Tamsulosin HCl 0.4 MG CAP PO SCH (08:48)
[2020-10-08] MEDS: levETIRAcetam 500 mg/5 ml Oral Solution PO SCH ×2 (08:48→21:14)
[2020-10-08] MEDS: Cyanocobalamin (Vitamin B-12) 1,000 MCG TAB PO SCH (08:48)
[2020-10-08] MEDS ORDERED: Magnesium Sulfate 4 GM in Sodium Chloride 0.9% 250 ML 250 ML IVPB SCH (10:15)
[2020-10-08] MEDS: Atorvastatin Calcium 10 MG TAB PO SCH (21:14)
[2020-10-08] MEDS: HYDROcodone/Acetaminophen 5/325 mg Tablet PO PRN (21:21)
[2020-10-09] MEDS: Lactated Ringer's 1,000 ML IV SCH ×6 (01:11→23:46)
[2020-10-09 04:51] LABS: Hemoglobin 8.9 g/dL (14.0-18.0); Mean Corpuscular Hemoglobin 32.2 pg (27.0-31.0); Mean Platelet Volume 8.3 fL (7.4-10.4); Platelet Count 462 thou/uL (130-400); RBC Distribution Width 14.7 % (11.5-14.5); Red Blood Cell (RBC) Count 2.77 mill/uL (4.70-6.10); White Blood Cell (WBC) Count 11.3 thou/uL (4.8-10.8)
[2020-10-09 08:10] LABS: Anion Gap 15 mmol/L (10-20); BUN (Urea Nitrogen) 37 mg/dL (8.4-25.7); Calc. Creatinine Clearance 19 mL/min (70-130); Calcium 10.5 mg/dL (7.8-10.44); Carbon Dioxide 23 mmol/L (23-31); Chloride 105 mmol/L (98-107); Glucose 86 mg/dL (83-110); Magnesium 2.4 mg/dL (1.6-2.6); Potassium 4.2 mmol/L (3.5-5.1); Sodium 139 mmol/L (136-145)
[2020-10-09] MEDS: Famotidine 20 MG TAB PO SCH (08:10)
[2020-10-09] MEDS: levETIRAcetam 500 mg/5 ml Oral Solution PO SCH ×2 (08:10→21:22)
[2020-10-09] MEDS: Lacosamide 50 mg Tablet PO SCH ×2 (08:10→21:20)
[2020-10-09] MEDS: Folic Acid 1 MG TAB PO SCH (08:11)
[2020-10-09] MEDS: Heparin 5,000 UNITS/ML VIAL SC SCH ×2 (08:11→21:21)
[2020-10-09] MEDS: Amlodipine 5 MG TAB PO SCH (08:11)
[2020-10-09] MEDS: Aspirin Chewable 81 MG TAB PO SCH ×2 (08:11→21:21)
[2020-10-09] MEDS: Tamsulosin HCl 0.4 MG CAP PO SCH (08:11)
[2020-10-09] MEDS: Sodium Bicarbonate Tab 325 MG TAB PO SCH (08:11)
[2020-10-09] MEDS: Cyanocobalamin (Vitamin B-12) 1,000 MCG TAB PO SCH (08:11)
[2020-10-09] MEDS: Acetaminophen 325 MG TAB PO PRN (09:35)
[2020-10-09 11:10] LABS: Phosphorus 3.4 mg/dL (2.3-4.7)
[2020-10-09 19:09] LABS: Bacteria/HPF None Seen HPF (None Seen); Bilirubin Negative (Negative); Blood, Urine 1+ (Negative); Clarity Clear (Clear); Glucose, Urine (Dipstick) Normal (Negative); Ketone, Urine Negative (Negative); Leukocyte 250 Leu/uL (Negative); Nitrite Negative (Negative); Protein, Urine (Dipstick) 100 mg/dL (Neg-Trace); RBC/HPF 0-3 HPF (0-3); Squamous Epithelial 0-3 HPF (0-3); Urobilinogen Normal mg/dL (Less than 2); WBC/HPF 21-50 HPF (0-3); pH, Urine 6.5 (5.0-9.0)
[2020-10-09 19:10] LABS: Urine Culture Reflex Yes Yes
[2020-10-09 19:51] LABS: Creatinine, Urine 32.05 mg/dL (63-166)
[2020-10-09] MEDS: Atorvastatin Calcium 10 MG TAB PO SCH (21:21)
[2020-10-10] MEDS: Melatonin 3 MG TAB PO PRN (01:23)
[2020-10-10] MEDS: Acetaminophen 325 MG TAB PO PRN ×2 (01:23→15:57)
[2020-10-10] MEDS: Zolpidem Tartrate 5 MG TAB PO PRN (01:23)
[2020-10-10] MEDS ORDERED: Sterile Water 10 ML VIAL FS PRN (01:45)
[2020-10-10] MEDS: Ziprasidone 20 MG VIAL IM PRN ×2 (01:55→21:38)
[2020-10-10] MEDS ORDERED: Dextrose 50% Abboject 50 ML SYRINGE ONE (01:58)
[2020-10-10] MEDS ORDERED: Dextrose 50% Abboject 50 ML SYRINGE SLOW IVP SCH (02:15)
[2020-10-10 04:39] LABS: Anion Gap 13 mmol/L (10-20); BUN (Urea Nitrogen) 34 mg/dL (8.4-25.7); Calc. Creatinine Clearance 21 mL/min (70-130); Calcium 10.4 mg/dL (7.8-10.44); Carbon Dioxide 22 mmol/L (23-31); Chloride 110 mmol/L (98-107); Glucose 93 mg/dL (83-110); Potassium 3.3 mmol/L (3.5-5.1); Sodium 142 mmol/L (136-145)
[2020-10-10] MEDS: Lactated Ringer's 1,000 ML IV SCH ×4 (05:48→21:21)
[2020-10-10] MEDS: Folic Acid 1 MG TAB PO SCH ×2 (09:08→09:29)
[2020-10-10] MEDS: Lacosamide 50 mg Tablet PO SCH ×2 (09:08→21:23)
[2020-10-10] MEDS: Tamsulosin HCl 0.4 MG CAP PO SCH (09:08)
[2020-10-10] MEDS: Amlodipine 5 MG TAB PO SCH (09:09)
[2020-10-10] MEDS: Heparin 5,000 UNITS/ML VIAL SC SCH ×2 (09:09→21:24)
[2020-10-10] MEDS: levETIRAcetam 500 mg/5 ml Oral Solution PO SCH ×2 (09:09→21:24)
[2020-10-10] MEDS: Cyanocobalamin (Vitamin B-12) 1,000 MCG TAB PO SCH ×2 (09:09→09:29)
[2020-10-10] MEDS: Famotidine 20 MG TAB PO SCH ×2 (09:09→09:29)
[2020-10-10] MEDS: Aspirin Chewable 81 MG TAB PO SCH ×2 (09:09→21:23)
[2020-10-10] MEDS: Atorvastatin Calcium 10 MG TAB PO SCH (21:23)
[2020-10-11] MEDS: Lactated Ringer's 1,000 ML IV SCH ×5 (02:35→18:09)
[2020-10-11] MEDS: Cyanocobalamin (Vitamin B-12) 1,000 MCG TAB PO SCH (08:55)
[2020-10-11] MEDS: Aspirin Chewable 81 MG TAB PO SCH ×2 (08:55→21:34)
[2020-10-11] MEDS: Tamsulosin HCl 0.4 MG CAP PO SCH (08:55)
[2020-10-11] MEDS: Heparin 5,000 UNITS/ML VIAL SC SCH ×2 (08:55→21:34)
[2020-10-11] MEDS: Amlodipine 5 MG TAB PO SCH (08:55)
[2020-10-11] MEDS: Famotidine 20 MG TAB PO SCH (08:55)
[2020-10-11] MEDS: Lacosamide 50 mg Tablet PO SCH ×2 (08:55→21:35)
[2020-10-11] MEDS: Folic Acid 1 MG TAB PO SCH (08:55)
[2020-10-11] MEDS: levETIRAcetam 500 mg/5 ml Oral Solution PO SCH ×2 (08:56→21:35)
[2020-10-11] MEDS: Ziprasidone 20 MG VIAL IM PRN (09:03)
[2020-10-11 11:40] LABS: Anion Gap 14 mmol/L (10-20); BUN (Urea Nitrogen) 35 mg/dL (8.4-25.7); Calc. Creatinine Clearance 17 mL/min (70-130); Carbon Dioxide 26 mmol/L (23-31); Chloride 109 mmol/L (98-107); Glucose 107 mg/dL (83-110); Potassium 3.6 mmol/L (3.5-5.1); Sodium 145 mmol/L (136-145)
[2020-10-11] MEDS: Sodium Chloride 0.9% 1,000 ML IV SCH (18:36)
[2020-10-11] MEDS: Atorvastatin Calcium 10 MG TAB PO SCH (21:34)
[2020-10-12] MEDS: Sodium Chloride 0.9% 1,000 ML IV SCH ×5 (00:28→16:32)
[2020-10-12] MEDS: Cyclobenzaprine 10 MG TAB PO PRN (02:25)
[2020-10-12] MEDS: HYDROcodone/Acetaminophen 5/325 mg Tablet PO PRN ×2 (02:29→09:33)
[2020-10-12 05:16] LABS: Anion Gap 13 mmol/L (10-20); BUN (Urea Nitrogen) 35 mg/dL (8.4-25.7); Calc. Creatinine Clearance 16 mL/min (70-130); Calcium 10.2 mg/dL (7.8-10.44); Carbon Dioxide 26 mmol/L (23-31); Chloride 111 mmol/L (98-107); Glucose 125 mg/dL (83-110); Potassium 3.2 mmol/L (3.5-5.1); Sodium 147 mmol/L (136-145)
[2020-10-12] MEDS: Lacosamide 50 mg Tablet PO SCH ×2 (09:32→22:50)
[2020-10-12] MEDS: Tamsulosin HCl 0.4 MG CAP PO SCH (09:33)
[2020-10-12] MEDS: Heparin 5,000 UNITS/ML VIAL SC SCH ×2 (09:33→22:51)
[2020-10-12] MEDS: Amlodipine 5 MG TAB PO SCH (09:33)
[2020-10-12] MEDS: Aspirin Chewable 81 MG TAB PO SCH ×2 (09:33→22:50)
[2020-10-12] MEDS: Folic Acid 1 MG TAB PO SCH (09:35)
[2020-10-12] MEDS: Famotidine 20 MG TAB PO SCH (09:35)
[2020-10-12] MEDS: Cyanocobalamin (Vitamin B-12) 1,000 MCG TAB PO SCH (09:35)
[2020-10-12] MEDS: levETIRAcetam 500 mg/5 ml Oral Solution PO SCH ×2 (09:35→22:51)
[2020-10-12 14:56] VITALS: BMI 18.9
[2020-10-12] MEDS: Albumin 25% 25 GM/100 ML BOT IVPB SCH (16:31)
[2020-10-12] MEDS: Atorvastatin Calcium 10 MG TAB PO SCH (22:50)
[2020-10-13] MEDS: Albumin 25% 25 GM/100 ML BOT IVPB SCH ×2 (00:14→09:14)
[2020-10-13] MEDS: Sodium Chloride 0.9% 1,000 ML IV SCH ×3 (01:37→19:02)
[2020-10-13] MEDS: HYDROcodone/Acetaminophen 5/325 mg Tablet PO PRN ×2 (03:11→21:42)
[2020-10-13] MEDS: Amlodipine 5 MG TAB PO SCH (09:14)
[2020-10-13] MEDS: Heparin 5,000 UNITS/ML VIAL SC SCH ×2 (09:14→21:35)
[2020-10-13] MEDS: levETIRAcetam 500 mg/5 ml Oral Solution PO SCH ×2 (09:14→21:35)
[2020-10-13] MEDS: Famotidine 20 MG TAB PO SCH (09:14)
[2020-10-13] MEDS: Folic Acid 1 MG TAB PO SCH (09:15)
[2020-10-13] MEDS: Cyanocobalamin (Vitamin B-12) 1,000 MCG TAB PO SCH (09:15)
[2020-10-13] MEDS: Tamsulosin HCl 0.4 MG CAP PO SCH (09:15)
[2020-10-13] MEDS: Lacosamide 50 mg Tablet PO SCH ×2 (09:15→21:35)
[2020-10-13] MEDS: Aspirin Chewable 81 MG TAB PO SCH ×2 (09:15→21:35)
[2020-10-13 15:08] LABS: Hemoglobin 8.6 g/dL (14.0-18.0); Mean Corpuscular HGB CONC 31.1 g/dL (32.0-36.0); Mean Corpuscular Hemoglobin 31.5 pg (27.0-31.0); Mean Platelet Volume 7.8 fL (7.4-10.4); Platelet Count 419 thou/uL (130-400); RBC Distribution Width 14.6 % (11.5-14.5); Red Blood Cell (RBC) Count 2.74 mill/uL (4.70-6.10); White Blood Cell (WBC) Count 7.6 thou/uL (4.8-10.8)
[2020-10-13 15:27] LABS: Anion Gap 15 mmol/L (10-20); BUN (Urea Nitrogen) 40 mg/dL (8.4-25.7); Calc. Creatinine Clearance 15 mL/min (70-130); Calcium 10.9 mg/dL (7.8-10.44); Carbon Dioxide 23 mmol/L (23-31); Chloride 111 mmol/L (98-107); Glucose 87 mg/dL (83-110); Potassium 3.3 mmol/L (3.5-5.1); Sodium 146 mmol/L (136-145)
[2020-10-13 15:28] LABS: Albumin 3.3 g/dL (3.4-4.8); Anion Gap 16 mmol/L (10-20); BUN (Urea Nitrogen) 41 mg/dL (8.4-25.7); Calc. Creatinine Clearance 15 mL/min (70-130); Calcium 11.1 mg/dL (7.8-10.44); Carbon Dioxide 23 mmol/L (23-31); Chloride 111 mmol/L (98-107); Glucose 88 mg/dL (83-110); Magnesium 1.5 mg/dL (1.6-2.6); Phosphorus 3.6 mg/dL (2.3-4.7); Potassium 3.3 mmol/L (3.5-5.1); Sodium 147 mmol/L (136-145)
[2020-10-13] MEDS ORDERED: Magnesium 2 GM/50 ML 2 GM in Premix Bag 1 BAG IVPB SCH (17:30)
[2020-10-13] MEDS: Atorvastatin Calcium 10 MG TAB PO SCH (21:35)
[2020-10-13] MEDS: Zolpidem Tartrate 5 MG TAB PO PRN (23:59)
[2020-10-14] MEDS: Sodium Chloride 0.9% 1,000 ML IV SCH ×3 (00:02→09:28)
[2020-10-14] MEDS: HYDROcodone/Acetaminophen 5/325 mg Tablet PO PRN ×2 (04:30→14:09)
[2020-10-14 06:51] LABS: Anion Gap 16 mmol/L (10-20); BUN (Urea Nitrogen) 42 mg/dL (8.4-25.7); BUN/Creatinine Ratio 12.84; Calc. Creatinine Clearance 15 mL/min (70-130); Calcium 10.3 mg/dL (7.8-10.44); Carbon Dioxide 20 mmol/L (23-31); Chloride 114 mmol/L (98-107); Glucose 86 mg/dL (83-110); Phosphorus 3.3 mg/dL (2.3-4.7); Potassium 3.8 mmol/L (3.5-5.1); Sodium 146 mmol/L (136-145)
[2020-10-14 08:38] LABS: Clarity Cloudy (Clear)
[2020-10-14 08:41] LABS: Specific Gravity, Urine 1.015 (1.002-1.036); pH, Urine 7.5 (5.0-9.0)
[2020-10-14 08:42] LABS: Leukocyte Large (Negative)
[2020-10-14 08:43] LABS: Glucose, Urine (Dipstick) Negative (Negative); Nitrite Negative (Negative); Protein, Urine (Dipstick) 100 mg/dL (Neg-Trace)
[2020-10-14 08:44] LABS: Ketone, Urine Negative (Negative)
[2020-10-14 08:45] LABS: Bilirubin Negative (Negative); Blood, Urine Small (Negative); Urobilinogen 0.2 mg/dL (Less than 2); WBC/HPF Greater than 50 HPF (0-3)
[2020-10-14 08:46] LABS: Bacteria/HPF 2+ HPF (None Seen); Squamous Epithelial None Seen HPF (0-3)
[2020-10-14 08:47] LABS: Urine Culture Reflex Yes Yes
[2020-10-14] MEDS ORDERED: cefTRIAXone\\ROCEPHIN 1 GM in Sodium Chloride 0.9% 100 ML IVPB SCH (09:00)
[2020-10-14] MEDS: levETIRAcetam 500 mg/5 ml Oral Solution PO SCH ×2 (09:32→20:55)
[2020-10-14] MEDS: Heparin 5,000 UNITS/ML VIAL SC SCH ×2 (09:32→20:56)
[2020-10-14] MEDS: Famotidine 20 MG TAB PO SCH (09:32)
[2020-10-14] MEDS: Tamsulosin HCl 0.4 MG CAP PO SCH (09:32)
[2020-10-14] MEDS: Aspirin Chewable 81 MG TAB PO SCH ×2 (09:32→20:56)
[2020-10-14] MEDS: Folic Acid 1 MG TAB PO SCH (09:32)
[2020-10-14] MEDS: Lacosamide 50 mg Tablet PO SCH ×2 (09:32→20:55)
[2020-10-14] MEDS: Amlodipine 5 MG TAB PO SCH (09:32)
[2020-10-14] MEDS: Cyanocobalamin (Vitamin B-12) 1,000 MCG TAB PO SCH (09:32)
[2020-10-14] MEDS: EPOETIN ALFA-EPBX (ESRD) 10,000 UNIT/ML VIAL SC SCH (11:04)
[2020-10-14] MEDS ORDERED: Sodium Chloride 0.45% 1,000 ML IV SCH ×2 (12:45)
[2020-10-14] MEDS ORDERED: Dextrose 5% w/ 20 mEq KCl 1,000 ML IV SCH (12:45)
[2020-10-14] MEDS: Sodium Chloride 0.45% 1,000 ML IV SCH ×2 (14:13→23:11)
[2020-10-14] MEDS: Atorvastatin Calcium 10 MG TAB PO SCH (20:56)
[2020-10-15] MEDS: Ziprasidone 20 MG VIAL IM PRN (00:24)
[2020-10-15 09:05] LABS: Albumin 3.3 g/dL (3.4-4.8); Anion Gap 16 mmol/L (10-20); BUN (Urea Nitrogen) 33 mg/dL (8.4-25.7); BUN/Creatinine Ratio 12.22; Calc. Creatinine Clearance 18 mL/min (70-130); Carbon Dioxide 24 mmol/L (23-31); Chloride 105 mmol/L (98-107); Glucose 92 mg/dL (83-110); Phosphorus 3.5 mg/dL (2.3-4.7); Potassium 3.4 mmol/L (3.5-5.1); Sodium 142 mmol/L (136-145)
[2020-10-15] MEDS ORDERED: Potassium Chloride 20 MEQ TAB PO SCH (10:00)
[2020-10-15] MEDS: Lacosamide 50 mg Tablet PO SCH ×2 (10:23→21:05)
[2020-10-15] MEDS: Aspirin Chewable 81 MG TAB PO SCH ×2 (10:23→21:06)
[2020-10-15] MEDS: Cyanocobalamin (Vitamin B-12) 1,000 MCG TAB PO SCH (10:23)
[2020-10-15] MEDS: Famotidine 20 MG TAB PO SCH (10:23)
[2020-10-15] MEDS: Tamsulosin HCl 0.4 MG CAP PO SCH (10:24)
[2020-10-15] MEDS: Folic Acid 1 MG TAB PO SCH (10:24)
[2020-10-15] MEDS: Amlodipine 5 MG TAB PO SCH (10:24)
[2020-10-15] MEDS: levETIRAcetam 500 mg/5 ml Oral Solution PO SCH ×2 (10:24→21:05)
[2020-10-15] MEDS: Heparin 5,000 UNITS/ML VIAL SC SCH ×2 (10:24→21:06)
[2020-10-15] MEDS: Sodium Chloride 0.45% 1,000 ML IV SCH ×4 (10:25→21:06)
[2020-10-15] MEDS ORDERED: Lorazepam 2 MG/ML VIAL SLOW IVP PRN (10:36)
[2020-10-15] MEDS: Atorvastatin Calcium 10 MG TAB PO SCH (21:05)
[2020-10-16] MEDS: Sodium Chloride 0.45% 1,000 ML IV SCH ×5 (00:50→23:55)
[2020-10-16 06:15] LABS: Mean Corpuscular HGB CONC 33.3 g/dL (32.0-36.0); Mean Corpuscular Hemoglobin 32.9 pg (27.0-31.0); Mean Corpuscular Volume 98.6 fL (78.0-98.0); Mean Platelet Volume 7.8 fL (7.4-10.4); Platelet Count 450 thou/uL (130-400); RBC Distribution Width 14.6 % (11.5-14.5); Red Blood Cell (RBC) Count 2.72 mill/uL (4.70-6.10); White Blood Cell (WBC) Count 8.2 thou/uL (4.8-10.8)
[2020-10-16 06:42] LABS: Albumin 2.8 g/dL (3.4-4.8); BUN (Urea Nitrogen) 34 mg/dL (8.4-25.7); BUN/Creatinine Ratio 13.13; Calc. Creatinine Clearance 19 mL/min (70-130); Calcium 9.9 mg/dL (7.8-10.44); Carbon Dioxide 23 mmol/L (23-31); Chloride 105 mmol/L (98-107); Glucose 94 mg/dL (83-110); Magnesium 1.4 mg/dL (1.6-2.6); Phosphorus 3.3 mg/dL (2.3-4.7); Sodium 139 mmol/L (136-145)
[2020-10-16 06:49] LABS: Potassium 2.9 mmol/L (3.5-5.1)
[2020-10-16 07:13] LABS: Anion Gap 14 mmol/L (10-20)
[2020-10-16] MEDS ORDERED: Potassium Chloride 20 MEQ TAB PO SCH ×2 (07:30→08:30)
[2020-10-16] MEDS ORDERED: Ziprasidone 20 MG CAP PO SCH (08:00)
[2020-10-16] MEDS ORDERED: Magnesium 2 GM/50 ML 4 GM in Premix Bag 1 BAG IVPB SCH (08:30)
[2020-10-16] MEDS: levETIRAcetam 500 mg/5 ml Oral Solution PO SCH ×2 (08:52→20:31)
[2020-10-16] MEDS: Aspirin Chewable 81 MG TAB PO SCH ×2 (08:52→20:30)
[2020-10-16] MEDS: Famotidine 20 MG TAB PO SCH (08:52)
[2020-10-16] MEDS: Cyanocobalamin (Vitamin B-12) 1,000 MCG TAB PO SCH (08:52)
[2020-10-16] MEDS: Lacosamide 50 mg Tablet PO SCH ×2 (08:52→20:31)
[2020-10-16] MEDS: Folic Acid 1 MG TAB PO SCH (08:53)
[2020-10-16] MEDS: Amlodipine 5 MG TAB PO SCH (08:53)
[2020-10-16] MEDS: Tamsulosin HCl 0.4 MG CAP PO SCH (08:53)
[2020-10-16] MEDS: Heparin 5,000 UNITS/ML VIAL SC SCH ×2 (08:53→20:31)
[2020-10-16] MEDS: Finasteride 5 MG TAB PO SCH (08:53)
[2020-10-16] MEDS: Atorvastatin Calcium 10 MG TAB PO SCH (20:30)
[2020-10-17 06:49] LABS: Albumin 2.8 g/dL (3.4-4.8); Anion Gap 13 mmol/L (10-20); BUN (Urea Nitrogen) 30 mg/dL (8.4-25.7); BUN/Creatinine Ratio 13.16; Calc. Creatinine Clearance 21 mL/min (70-130); Calcium 10.3 mg/dL (7.8-10.44); Carbon Dioxide 23 mmol/L (23-31); Chloride 107 mmol/L (98-107); Glucose 97 mg/dL (83-110); Phosphorus 2.9 mg/dL (2.3-4.7); Potassium 3.3 mmol/L (3.5-5.1); Sodium 140 mmol/L (136-145)
[2020-10-17] MEDS: Tamsulosin HCl 0.4 MG CAP PO SCH (09:48)
[2020-10-17] MEDS: Famotidine 20 MG TAB PO SCH (09:48)
[2020-10-17] MEDS: Amlodipine 5 MG TAB PO SCH (09:48)
[2020-10-17] MEDS: Lacosamide 50 mg Tablet PO SCH ×2 (09:48→20:53)
[2020-10-17] MEDS: Folic Acid 1 MG TAB PO SCH (09:48)
[2020-10-17] MEDS: Heparin 5,000 UNITS/ML VIAL SC SCH ×2 (09:49→20:54)
[2020-10-17] MEDS: levETIRAcetam 500 mg/5 ml Oral Solution PO SCH ×2 (09:49→20:53)
[2020-10-17] MEDS: Aspirin Chewable 81 MG TAB PO SCH ×2 (09:49→20:54)
[2020-10-17] MEDS: Finasteride 5 MG TAB PO SCH (09:49)
[2020-10-17] MEDS: Cyanocobalamin (Vitamin B-12) 1,000 MCG TAB PO SCH (09:49)
[2020-10-17] MEDS: Sodium Chloride 0.45% 1,000 ML IV SCH ×2 (09:50→18:15)
[2020-10-17] MEDS: Atorvastatin Calcium 10 MG TAB PO SCH (20:54)
[2020-10-18] MEDS: Sodium Chloride 0.45% 1,000 ML IV SCH ×2 (05:33→14:41)
[2020-10-18] MEDS: Amlodipine 5 MG TAB PO SCH (09:17)
[2020-10-18] MEDS: Folic Acid 1 MG TAB PO SCH (09:19)
[2020-10-18] MEDS: Aspirin Chewable 81 MG TAB PO SCH ×2 (09:19→20:49)
[2020-10-18] MEDS: Tamsulosin HCl 0.4 MG CAP PO SCH (09:20)
[2020-10-18] MEDS: Finasteride 5 MG TAB PO SCH (09:20)
[2020-10-18] MEDS: Heparin 5,000 UNITS/ML VIAL SC SCH ×2 (09:20→20:50)
[2020-10-18] MEDS: Cyanocobalamin (Vitamin B-12) 1,000 MCG TAB PO SCH (09:20)
[2020-10-18] MEDS: levETIRAcetam 500 mg/5 ml Oral Solution PO SCH ×2 (09:20→20:49)
[2020-10-18] MEDS: Famotidine 20 MG TAB PO SCH (09:20)
[2020-10-18] MEDS: Acetaminophen 325 MG TAB PO PRN ×2 (09:43→17:27)
[2020-10-18] MEDS: Lacosamide 50 mg Tablet PO SCH ×2 (11:25→20:49)
[2020-10-18 11:50] LABS: Anion Gap 15 mmol/L (10-20); BUN (Urea Nitrogen) 33 mg/dL (8.4-25.7); Calc. Creatinine Clearance 22 mL/min (70-130); Calcium 11.2 mg/dL (7.8-10.44); Carbon Dioxide 24 mmol/L (23-31); Chloride 106 mmol/L (98-107); Glucose 108 mg/dL (83-110); Magnesium 1.6 mg/dL (1.6-2.6); Potassium 3.7 mmol/L (3.5-5.1); Sodium 141 mmol/L (136-145)
[2020-10-18 11:54] LABS: Anisocytosis SLIGHT = 6-15 cells (100X) (0-5/hpf); Band 3 % (5-11); Eosinophils 1 % (0-10); Hemoglobin 9.8 g/dL (14.0-18.0); Lymphocytes 26 % (21-51); MDiff Complete? YES; Mean Corpuscular HGB CONC 32.2 g/dL (32.0-36.0); Mean Corpuscular Hemoglobin 31.8 pg (27.0-31.0); Mean Corpuscular Volume 98.9 fL (78.0-98.0); Mean Platelet Volume 7.6 fL (7.4-10.4); Monocytes 16 % (0-10); Neutrophil 51 % (42-75); Platelet Count 478 thou/uL (130-400); Platelet Morphology Comment Appears Increased; RBC Distribution Width 14.8 % (11.5-14.5); Reactive Lymphocytes 2 % (0-10); Red Blood Cell (RBC) Count 3.09 mill/uL (4.70-6.10); White Blood Cell (WBC) Count 8.8 thou/uL (4.8-10.8)
[2020-10-18] MEDS: Atorvastatin Calcium 10 MG TAB PO SCH (20:50)
[2020-10-19] MEDS: Sodium Chloride 0.45% 1,000 ML IV SCH (01:14)
[2020-10-19 06:44] LABS: #Basophils 0.1 thou/uL (0.0-0.2); #Eosinphils 0.1 thou/uL (0.0-0.7); #Lymphocytes 1.8 thou/uL (1.20-3.40); #Monocytes 1.3 thou/uL (0.11-0.59); #Neutrophils 6.4 thou/uL (1.40-6.50); %Basophils 0.7 % (0.0-1.0); %Eosinophils 0.8 % (0.0-10.0); %Monocytes 13.4 % (0.0-10.0); %Neutrophils 66.1 % (42.0-75.0); Hemoglobin 10.1 g/dL (14.0-18.0); Mean Corpuscular HGB CONC 31.7 g/dL (32.0-36.0); Mean Corpuscular Hemoglobin 31.2 pg (27.0-31.0); Mean Corpuscular Volume 98.3 fL (78.0-98.0); Mean Platelet Volume 7.9 fL (7.4-10.4); Platelet Count 558 thou/uL (130-400); RBC Distribution Width 14.7 % (11.5-14.5); Red Blood Cell (RBC) Count 3.25 mill/uL (4.70-6.10); White Blood Cell (WBC) Count 9.6 thou/uL (4.8-10.8)
[2020-10-19 07:01] LABS: Anion Gap 15 mmol/L (10-20); BUN (Urea Nitrogen) 32 mg/dL (8.4-25.7); Calc. Creatinine Clearance 24 mL/min (70-130); Calcium 11.7 mg/dL (7.8-10.44); Carbon Dioxide 21 mmol/L (23-31); Chloride 108 mmol/L (98-107); Glucose 119 mg/dL (83-110); Potassium 3.9 mmol/L (3.5-5.1); Sodium 140 mmol/L (136-145)
[2020-10-19] MEDS: levETIRAcetam 500 mg/5 ml Oral Solution PO SCH ×2 (08:30→23:06)
[2020-10-19] MEDS: Famotidine 20 MG TAB PO SCH (08:30)
[2020-10-19] MEDS: Lacosamide 50 mg Tablet PO SCH ×2 (08:31→23:09)
[2020-10-19] MEDS: Finasteride 5 MG TAB PO SCH (08:31)
[2020-10-19] MEDS: Amlodipine 5 MG TAB PO SCH (08:31)
[2020-10-19] MEDS: Heparin 5,000 UNITS/ML VIAL SC SCH ×2 (08:31→23:08)
[2020-10-19] MEDS: Folic Acid 1 MG TAB PO SCH (08:31)
[2020-10-19] MEDS: Aspirin Chewable 81 MG TAB PO SCH ×2 (08:31→23:06)
[2020-10-19] MEDS: Cyanocobalamin (Vitamin B-12) 1,000 MCG TAB PO SCH (08:31)
[2020-10-19] MEDS: Tamsulosin HCl 0.4 MG CAP PO SCH (08:31)
[2020-10-19] MEDS: Sodium Chloride 0.9% 1,000 ML IV SCH ×2 (09:04→17:04)
[2020-10-19] MEDS: Lidocaine 5% Patch TD SCH (12:09)
[2020-10-19] MEDS: Carvedilol 3.125 MG TAB PO SCH (17:00)
[2020-10-19] MEDS: Acetaminophen 325 MG TAB PO SCH (23:06)
[2020-10-19] MEDS: Atorvastatin Calcium 10 MG TAB PO SCH (23:08)
[2020-10-19] MEDS: Transdermal Patch Removal TOP SCH (23:09)
[2020-10-20] MEDS: Sodium Chloride 0.9% 1,000 ML IV SCH ×2 (06:26→16:10)
[2020-10-20 07:26] LABS: Anion Gap 11 mmol/L (10-20); BUN (Urea Nitrogen) 32 mg/dL (8.4-25.7); Calc. Creatinine Clearance 25 mL/min (70-130); Carbon Dioxide 26 mmol/L (23-31); Chloride 112 mmol/L (98-107); Glucose 90 mg/dL (83-110); Potassium 3.9 mmol/L (3.5-5.1); Sodium 145 mmol/L (136-145)
[2020-10-20 07:51] LABS: Band 1 % (5-11); Hemoglobin 9.6 g/dL (14.0-18.0); Hypochromia SLIGHT = 6-15 cells (100X) (0-5/hpf); Lymphocytes 33 % (21-51); MDiff Complete? YES; Mean Corpuscular HGB CONC 31.2 g/dL (32.0-36.0); Mean Corpuscular Hemoglobin 31.5 pg (27.0-31.0); Monocytes 1 % (0-10); Neutrophil 64 % (42-75); Platelet Count 458 thou/uL (130-400); Platelet Morphology Comment Appears Increased; Polychromasia SLIGHT = 2-3 cells (100X) (0-2/hpf); RBC Distribution Width 15.1 % (11.5-14.5); Red Blood Cell (RBC) Count 3.05 mill/uL (4.70-6.10); White Blood Cell (WBC) Count 9.1 thou/uL (4.8-10.8)
[2020-10-20] MEDS: Aspirin Chewable 81 MG TAB PO SCH ×2 (09:29→22:00)
[2020-10-20] MEDS: Famotidine 20 MG TAB PO SCH (09:29)
[2020-10-20] MEDS: Amlodipine 5 MG TAB PO SCH (09:29)
[2020-10-20] MEDS: Tamsulosin HCl 0.4 MG CAP PO SCH (09:30)
[2020-10-20] MEDS: Carvedilol 3.125 MG TAB PO SCH ×2 (09:30→16:11)
[2020-10-20] MEDS: Cyanocobalamin (Vitamin B-12) 1,000 MCG TAB PO SCH (09:30)
[2020-10-20] MEDS: Finasteride 5 MG TAB PO SCH (09:30)
[2020-10-20] MEDS: Folic Acid 1 MG TAB PO SCH (09:31)
[2020-10-20] MEDS: Acetaminophen 325 MG TAB PO SCH ×2 (09:31→22:00)
[2020-10-20] MEDS: levETIRAcetam 500 mg/5 ml Oral Solution PO SCH ×2 (09:32→22:00)
[2020-10-20] MEDS: Heparin 5,000 UNITS/ML VIAL SC SCH ×2 (09:33→22:00)
[2020-10-20] MEDS: Lidocaine 5% Patch TD SCH (16:09)
[2020-10-20] MEDS: Lacosamide 50 mg Tablet PO SCH ×2 (16:11→22:00)
[2020-10-20] MEDS: Transdermal Patch Removal TOP SCH (22:00)
[2020-10-20] MEDS: Atorvastatin Calcium 10 MG TAB PO SCH (22:00)
[2020-10-21] MEDS: Acetaminophen 325 MG TAB PO PRN ×2 (06:42→13:34)
[2020-10-21] MEDS: Sodium Chloride 0.9% 1,000 ML IV SCH ×2 (07:02→10:37)
[2020-10-21] MEDS: Acetaminophen 325 MG TAB PO SCH ×2 (09:01→20:29)
[2020-10-21] MEDS: Lacosamide 50 mg Tablet PO SCH ×2 (09:15→20:29)
[2020-10-21] MEDS: levETIRAcetam 500 mg/5 ml Oral Solution PO SCH ×2 (09:16→20:29)
[2020-10-21] MEDS: Aspirin Chewable 81 MG TAB PO SCH ×2 (09:16→20:29)
[2020-10-21] MEDS: Famotidine 20 MG TAB PO SCH (09:16)
[2020-10-21] MEDS: Finasteride 5 MG TAB PO SCH (09:17)
[2020-10-21] MEDS: Amlodipine 5 MG TAB PO SCH (09:17)
[2020-10-21] MEDS: Carvedilol 3.125 MG TAB PO SCH ×2 (09:17→17:00)
[2020-10-21] MEDS: Cyanocobalamin (Vitamin B-12) 1,000 MCG TAB PO SCH (09:17)
[2020-10-21] MEDS: Folic Acid 1 MG TAB PO SCH (09:17)
[2020-10-21] MEDS: Heparin 5,000 UNITS/ML VIAL SC SCH ×2 (09:17→20:30)
[2020-10-21] MEDS: Tamsulosin HCl 0.4 MG CAP PO SCH (09:17)
[2020-10-21] MEDS: Lidocaine 5% Patch TD SCH (09:17)
[2020-10-21 11:21] LABS: Anion Gap 11 mmol/L (10-20); BUN (Urea Nitrogen) 29 mg/dL (8.4-25.7); Calc. Creatinine Clearance 30 mL/min (70-130); Carbon Dioxide 23 mmol/L (23-31); Chloride 111 mmol/L (98-107); Glucose 86 mg/dL (83-110); Potassium 3.3 mmol/L (3.5-5.1); Sodium 142 mmol/L (136-145)
[2020-10-21] MEDS: EPOETIN ALFA-EPBX (ESRD) 10,000 UNIT/ML VIAL SC SCH (13:35)
[2020-10-21] MEDS ORDERED: Potassium Chloride 20 MEQ TAB PO SCH (14:15)
[2020-10-21] MEDS ORDERED: Sodium Chloride 0.9% 1,000 ML IV SCH (14:30)
[2020-10-21] MEDS: Atorvastatin Calcium 10 MG TAB PO SCH (20:29)
[2020-10-21] MEDS: Transdermal Patch Removal TOP SCH (20:30)
[2020-10-22 09:54] LABS: Anion Gap 13 mmol/L (10-20); BUN (Urea Nitrogen) 25 mg/dL (8.4-25.7); Calc. Creatinine Clearance 30 mL/min (70-130); Carbon Dioxide 26 mmol/L (23-31); Chloride 108 mmol/L (98-107); Glucose 118 mg/dL (83-110); Magnesium 1.4 mg/dL (1.6-2.6); Potassium 3.7 mmol/L (3.5-5.1); Sodium 143 mmol/L (136-145)
[2020-10-22] MEDS: Heparin 5,000 UNITS/ML VIAL SC SCH (09:56)
[2020-10-22] MEDS: Amlodipine 5 MG TAB PO SCH (09:57)
[2020-10-22] MEDS: Acetaminophen 325 MG TAB PO SCH (09:58)
[2020-10-22] MEDS: Tamsulosin HCl 0.4 MG CAP PO SCH (10:00)
[2020-10-22] MEDS: Finasteride 5 MG TAB PO SCH (10:00)
[2020-10-22] MEDS: Lacosamide 50 mg Tablet PO SCH (10:00)
[2020-10-22] MEDS: Famotidine 20 MG TAB PO SCH (10:00)
[2020-10-22] MEDS: Carvedilol 3.125 MG TAB PO SCH ×2 (10:00→17:24)
[2020-10-22] MEDS: Cyanocobalamin (Vitamin B-12) 1,000 MCG TAB PO SCH (10:00)
[2020-10-22] MEDS: Folic Acid 1 MG TAB PO SCH (10:00)
[2020-10-22] MEDS: Aspirin Chewable 81 MG TAB PO SCH (10:01)
[2020-10-22] MEDS: levETIRAcetam 500 mg/5 ml Oral Solution PO SCH (10:01)
[2020-10-22] MEDS: Lidocaine 5% Patch TD SCH (10:54)
[2020-10-22 11:51] VITALS: TEMP 97.9
[2020-10-22] MEDS: Magnesium Oxide 400 MG TAB PO SCH ×2 (12:18→17:09)
[2020-10-22] MEDS ORDERED: Magnesium Sulfate 4 GM in Sodium Chloride 0.9% 250 ML 250 ML IVPB SCH (13:00)
[2020-10-22 17:13] VITALS: BP 119/74
== END 2020-10-22 18:08 | DRG 682 ==
LOC: ERS 12:46 → 2NO 17:02 → T4-A 10-13 14:32
PROVIDERS: ADMIT Internal Medicine; ATTEND Family Medicine
PROC: 0T9B70Z Drainage of Bladder with Drainage Device, Via Natural or Artificial Opening (ICD-10-PCS; principal; 2020-10-13)
DX: N17.9 Acute kidney failure, unspecified (principal); G93.41 Metabolic encephalopathy; E87.2 Acidosis; E44.0 Moderate protein-calorie malnutrition; Z68.1 Body mass index [BMI] 19.9 or less, adult; E87.0 Hyperosmolality and hypernatremia; N13.6 Pyonephrosis; E87.8 Other disorders of electrolyte and fluid balance, not elsewhere classified; E78.5 Hyperlipidemia, unspecified; G40.909 Epilepsy, unspecified, not intractable, without status epilepticus; I12.9 Hypertensive chronic kidney disease with stage 1 through stage 4 chronic kidney disease, or unspecified chronic kidney disease; D53.9 Nutritional anemia, unspecified; B95.2 Enterococcus as the cause of diseases classified elsewhere; N25.81 Secondary hyperparathyroidism of renal origin; R33.8 Other retention of urine; N32.0 Bladder-neck obstruction; D63.1 Anemia in chronic kidney disease; N18.32 Chronic kidney disease, stage 3b; F03.90 Unspecified dementia, unspecified severity, without behavioral disturbance, psychotic disturbance, mood disturbance, and anxiety; N40.1 Benign prostatic hyperplasia with lower urinary tract symptoms; E86.0 Dehydration; D50.9 Iron deficiency anemia, unspecified; E86.9 Volume depletion, unspecified; Z20.822 Contact with and (suspected) exposure to COVID-19; E87.6 Hypokalemia; E83.52 Hypercalcemia; E88.09 Other disorders of plasma-protein metabolism, not elsewhere classified; E83.42 Hypomagnesemia; Z79.82 Long term (current) use of aspirin; Z86.73 Personal history of transient ischemic attack (TIA), and cerebral infarction without residual deficits
CPT/HCPCS: 36415; 36416; 51702; 51798; 76770; 80048; 80053; 80069; 81001; 81003; 81015; 82340; 82550; 82570; 82607; 82728; 82746; 83540; 83550; 83605; 83735; 83935; 83970; 84100; 84153; 84156; 84300; 84540; 85025; 85027; 87077; 87086; 87186; 87635; 90471; 90732; 93005; 96365; 96375; C9803; G0009; J0696; J1644; J2060; J2270; J2358; J2916; J3475; J3480; J3486; J3490; J7050; J7070; P9047; Q5105; U0003; U0005

== ENCOUNTER 2020-11-10 14:09 | Inpatient (IN) | payer MEDICARE ==
[2020-11-10 14:52] LABS: #Basophils 0.1 thou/uL (0.0-0.2); #Lymphocytes 2.3 thou/uL (1.20-3.40); #Monocytes 1.5 thou/uL (0.11-0.59); #Neutrophils 9.4 thou/uL (1.40-6.50); %Basophils 0.5 % (0.0-1.0); %Eosinophils 0.3 % (0.0-10.0); %Lymphocytes 17.1 % (21.0-51.0); %Monocytes 11.3 % (0.0-10.0); %Neutrophils 70.8 % (42.0-75.0); Hemoglobin 13.3 g/dL (14.0-18.0); Mean Corpuscular HGB CONC 32.1 g/dL (32.0-36.0); Mean Corpuscular Hemoglobin 31.7 pg (27.0-31.0); Mean Corpuscular Volume 98.7 fL (78.0-98.0); Mean Platelet Volume 8.2 fL (7.4-10.4); Platelet Count 354 thou/uL (130-400); RBC Distribution Width 15.1 % (11.5-14.5); Red Blood Cell (RBC) Count 4.18 mill/uL (4.70-6.10); White Blood Cell (WBC) Count 13.2 thou/uL (4.8-10.8)
[2020-11-10 14:58] LABS: Actual Bicarbonate (HCO3v) 24 mEq/L (22-28); Analyzer IN Cardio ER; Base Excess -1.2 mEq/L (-2.0 to +3.0); Chloride (VBG) 102 mmol/L (98-106); Hemoglobin (Hb) 14.3 g/dL (12.6-17.4); Potassium (VBG) 4.49 mmol/L (3.70-5.30); Sodium 136.2 mmol/L (133-146); pH (venous) 7.38 (7.32-7.43)
[2020-11-10 15:14] LABS: ALT (SGPT) 20 U/L (8-55); AST (SGOT) 40 U/L (5-34); Albumin 3.1 g/dL (3.4-4.8); Alkaline Phosphatase 102 U/L (40-110); Anion Gap 18 mmol/L (10-20); BUN (Urea Nitrogen) 74 mg/dL (8.4-25.7); Bilirubin, Total 0.6 mg/dL (0.2-1.2); CK (CPK) 127 U/L (30-200); Calc. Creatinine Clearance 0 mL/min (70-130); Carbon Dioxide 27 mmol/L (23-31); Chloride 101 mmol/L (98-107); Globulin 5.5 g/dL (2.4-3.5); Glucose 126 mg/dL (83-110); Lipase 28 U/L (8-78); Magnesium 2.8 mg/dL (1.6-2.6); Potassium 4.5 mmol/L (3.5-5.1); Protein, Total 8.6 g/dL (5.8-8.1); Sodium 141 mmol/L (136-145)
[2020-11-10 15:18] LABS: Calcium 12.1 mg/dL (7.8-10.44)
[2020-11-10 16:13] LABS: RBC/HPF 21-50 HPF (0-3); Squamous Epithelial 0-3 HPF (0-3); WBC/HPF Greater than 50 HPF (0-3)
[2020-11-10 16:18] LABS: Clarity Cloudy (Clear)
[2020-11-10 16:19] LABS: Leukocyte 500 Leu/uL (Negative); Nitrite 1+ (Negative); Specific Gravity, Urine 1.019 (1.002-1.036)
[2020-11-10 16:20] LABS: Bilirubin Negative (Negative); Blood, Urine 1+ (Negative); Glucose, Urine (Dipstick) Negative (Negative); Ketone, Urine Negative (Negative); Protein, Urine (Dipstick) 200 mg/dL (Neg-Trace); Urobilinogen 0.2 mg/dL (Less than 2)
[2020-11-10 16:21] LABS: Bacteria/HPF 1+ HPF (None Seen)
[2020-11-10 18:18] LABS: Troponin I Less than 0.010 ng/mL (< 0.028)
[2020-11-10] MEDS: Sodium Chloride 0.9% 1,000 ML IV SCH (20:22)
[2020-11-10] MEDS: cefTRIAXone\\ROCEPHIN 1 GM in Sodium Chloride 0.9% 100 ML IVPB SCH (21:37)
[2020-11-10 22:00] LABS: Troponin I 0.011 ng/mL (< 0.028)
[2020-11-11 01:29] LABS: SARS-CoV-2 NAA Rapid Test Not Detected (NotDetected)
[2020-11-11] MEDS: Sodium Chloride 0.9% 1,000 ML IV SCH ×4 (02:28→23:12)
[2020-11-11 07:30] LABS: #Basophils 0.1 thou/uL (0.0-0.2); #Eosinphils 0.1 thou/uL (0.0-0.7); #Lymphocytes 1.7 thou/uL (1.20-3.40); #Monocytes 1.5 thou/uL (0.11-0.59); #Neutrophils 6.7 thou/uL (1.40-6.50); %Basophils 0.7 % (0.0-1.0); %Eosinophils 0.9 % (0.0-10.0); %Lymphocytes 16.8 % (21.0-51.0); %Monocytes 14.8 % (0.0-10.0); %Neutrophils 66.8 % (42.0-75.0); Mean Corpuscular HGB CONC 30.5 g/dL (32.0-36.0); Mean Corpuscular Hemoglobin 30.6 pg (27.0-31.0); Mean Platelet Volume 8.4 fL (7.4-10.4); Platelet Count 340 thou/uL (130-400); Red Blood Cell (RBC) Count 3.91 mill/uL (4.70-6.10)
[2020-11-11 08:00] LABS: Anion Gap 17 mmol/L (10-20); BUN (Urea Nitrogen) 69 mg/dL (8.4-25.7); Calc. Creatinine Clearance 19 mL/min (70-130); Calcium 10.3 mg/dL (7.8-10.44); Carbon Dioxide 18 mmol/L (23-31); Chloride 112 mmol/L (98-107); Glucose 81 mg/dL (83-110); Potassium 4.5 mmol/L (3.5-5.1); Sodium 142 mmol/L (136-145)
[2020-11-11] MEDS ORDERED: Acetaminophen 325 MG TAB PO PRN (13:43)
[2020-11-11] MEDS ORDERED: Ergocalciferol 1.25 MG(50,000 UNITS) CAP PO SCH (13:45)
[2020-11-11] MEDS: Carvedilol 3.125 MG TAB PO SCH (18:34)
[2020-11-11] MEDS: Lacosamide 50 mg Tablet PO SCH (21:16)
[2020-11-11] MEDS: Aspirin 81 mg Enteric Coated Tablet PO SCH (21:30)
[2020-11-11] MEDS: Atorvastatin Calcium 10 MG TAB PO SCH (21:30)
[2020-11-11] MEDS: Magnesium Oxide 400 MG TAB PO SCH (21:31)
[2020-11-11] MEDS: Montelukast Sodium 10 mg Tablet PO SCH (21:31)
[2020-11-11] MEDS: Sodium Bicarbonate Tab 325 MG TAB PO SCH (21:31)
[2020-11-11] MEDS ORDERED: Lorazepam 2 MG/ML VIAL SLOW IVP PRN (21:44)
[2020-11-11] MEDS: cefTRIAXone\\ROCEPHIN 1 GM in Sodium Chloride 0.9% 100 ML IVPB SCH (23:10)
[2020-11-12] MEDS: Sodium Chloride 0.9% 1,000 ML IV SCH ×3 (05:50→17:00)
[2020-11-12 08:14] LABS: Anion Gap 12 mmol/L (10-20); BUN (Urea Nitrogen) 55 mg/dL (8.4-25.7); Calc. Creatinine Clearance 28 mL/min (70-130); Calcium 9.9 mg/dL (7.8-10.44); Carbon Dioxide 23 mmol/L (23-31); Chloride 115 mmol/L (98-107); Glucose 77 mg/dL (83-110); Potassium 3.6 mmol/L (3.5-5.1); Sodium 146 mmol/L (136-145)
[2020-11-12] MEDS: Magnesium Oxide 400 MG TAB PO SCH ×2 (09:00→23:33)
[2020-11-12] MEDS: Sodium Bicarbonate Tab 325 MG TAB PO SCH ×2 (09:00→23:33)
[2020-11-12] MEDS: Finasteride 5 MG TAB PO SCH (09:00)
[2020-11-12] MEDS: Cyanocobalamin (Vitamin B-12) 1,000 MCG TAB PO SCH (09:00)
[2020-11-12] MEDS: Carvedilol 3.125 MG TAB PO SCH ×2 (09:00→18:00)
[2020-11-12] MEDS: Aspirin 81 mg Enteric Coated Tablet PO SCH ×2 (09:00→23:33)
[2020-11-12] MEDS: Senokot 8.6 MG TAB PO SCH (09:00)
[2020-11-12] MEDS: Famotidine 20 MG TAB PO SCH (09:00)
[2020-11-12] MEDS: Amlodipine 5 MG TAB PO SCH (09:00)
[2020-11-12] MEDS: Lacosamide 50 mg Tablet PO SCH ×2 (09:00→23:33)
[2020-11-12] MEDS: Tamsulosin HCl 0.4 MG CAP PO SCH (09:00)
[2020-11-12] MEDS: Folic Acid 1 MG TAB PO SCH (09:00)
[2020-11-12 09:19] LABS: Band 1 % (5-11); Eosinophils 2 % (0-10); Hemoglobin 10.6 g/dL (14.0-18.0); Lymphocytes 15 % (21-51); MDiff Complete? YES; Mean Corpuscular HGB CONC 32.3 g/dL (32.0-36.0); Mean Corpuscular Hemoglobin 32.2 pg (27.0-31.0); Mean Corpuscular Volume 99.9 fL (78.0-98.0); Mean Platelet Volume 8.4 fL (7.4-10.4); Monocytes 14 % (0-10); Neutrophil 66 % (42-75); Platelet Clumps SLIGHT; Platelet Count 289 thou/uL (130-400); Platelet Morphology Comment Appears Adequate; RBC Morphology Normal
[2020-11-12] MEDS: Doxycycline 100 MG CAP PO SCH ×2 (09:50→23:33)
[2020-11-12] MEDS: Polyethylene Glycol 3350 17 GM Packet PO SCH (12:07)
[2020-11-12] MEDS ORDERED: Sulfameth/Trimethoprim SS 400-80MG TAB PO SCH (14:45)
[2020-11-12] MEDS: Lidocaine 5% Patch TD SCH (23:33)
[2020-11-12] MEDS: Montelukast Sodium 10 mg Tablet PO SCH (23:33)
[2020-11-12] MEDS: Atorvastatin Calcium 10 MG TAB PO SCH (23:33)
[2020-11-12] MEDS: Sulfameth/Trimethoprim SS 400-80MG TAB PO SCH (23:34)
[2020-11-13] MEDS: Sodium Chloride 0.9% 1,000 ML IV SCH ×2 (03:10→10:22)
[2020-11-13] MEDS: Carvedilol 3.125 MG TAB PO SCH ×2 (08:00→18:11)
[2020-11-13] MEDS ORDERED: Calcium Gluc 4.6 MEQ/10 ML (100 MG/ML) SLOW IVP SCH (08:27)
[2020-11-13] MEDS ORDERED: Dextrose 5% w/ 20 mEq KCl 1,000 ML IV SCH (08:30)
[2020-11-13] MEDS: Lacosamide 50 mg Tablet PO SCH ×2 (09:20→20:44)
[2020-11-13] MEDS: Doxycycline 100 MG CAP PO SCH ×2 (10:00→20:25)
[2020-11-13] MEDS: Famotidine 20 MG TAB PO SCH (10:00)
[2020-11-13] MEDS: Folic Acid 1 MG TAB PO SCH (10:00)
[2020-11-13] MEDS: Tamsulosin HCl 0.4 MG CAP PO SCH (10:00)
[2020-11-13] MEDS: Sulfameth/Trimethoprim SS 400-80MG TAB PO SCH (10:00)
[2020-11-13] MEDS: Sodium Bicarbonate Tab 325 MG TAB PO SCH ×2 (10:00→20:21)
[2020-11-13] MEDS: Amlodipine 5 MG TAB PO SCH (10:00)
[2020-11-13] MEDS: Senokot 8.6 MG TAB PO SCH (10:00)
[2020-11-13] MEDS: Aspirin 81 mg Enteric Coated Tablet PO SCH ×2 (10:00→20:24)
[2020-11-13] MEDS: Polyethylene Glycol 3350 17 GM Packet PO SCH (10:00)
[2020-11-13] MEDS: Cyanocobalamin (Vitamin B-12) 1,000 MCG TAB PO SCH (10:00)
[2020-11-13] MEDS: Magnesium Oxide 400 MG TAB PO SCH ×2 (10:00→20:22)
[2020-11-13] MEDS: Finasteride 5 MG TAB PO SCH (10:00)
[2020-11-13] MEDS: Lidocaine Patch Removal TOP SCH (10:22)
[2020-11-13 12:24] VITALS: BMI 18.4
[2020-11-13] MEDS: Lidocaine 5% Patch TD SCH (20:20)
[2020-11-13] MEDS: Montelukast Sodium 10 mg Tablet PO SCH (20:23)
[2020-11-13] MEDS: Atorvastatin Calcium 10 MG TAB PO SCH (20:24)
[2020-11-14 06:35] LABS: #Eosinphils 0.3 thou/uL (0.0-0.7); #Lymphocytes 1.9 thou/uL (1.20-3.40); #Monocytes 0.9 thou/uL (0.11-0.59); #Neutrophils 3.8 thou/uL (1.40-6.50); %Basophils 0.6 % (0.0-1.0); %Eosinophils 4.6 % (0.0-10.0); %Lymphocytes 26.8 % (21.0-51.0); %Neutrophils 55.1 % (42.0-75.0); Hemoglobin 11.5 g/dL (14.0-18.0); Mean Corpuscular HGB CONC 31.7 g/dL (32.0-36.0); Mean Corpuscular Hemoglobin 31.5 pg (27.0-31.0); Mean Corpuscular Volume 99.4 fL (78.0-98.0); Mean Platelet Volume 8.3 fL (7.4-10.4); Platelet Count 297 thou/uL (130-400); RBC Distribution Width 14.4 % (11.5-14.5); Red Blood Cell (RBC) Count 3.65 mill/uL (4.70-6.10); White Blood Cell (WBC) Count 6.9 thou/uL (4.8-10.8)
[2020-11-14 06:49] LABS: Anion Gap 13 mmol/L (10-20); BUN (Urea Nitrogen) 25 mg/dL (8.4-25.7); Calc. Creatinine Clearance 37 mL/min (70-130); Calcium 10.2 mg/dL (7.8-10.44); Carbon Dioxide 21 mmol/L (23-31); Chloride 108 mmol/L (98-107); Glucose 88 mg/dL (83-110); Potassium 3.5 mmol/L (3.5-5.1); Sodium 138 mmol/L (136-145)
[2020-11-14] MEDS: Aspirin 81 mg Enteric Coated Tablet PO SCH ×2 (09:02→21:27)
[2020-11-14] MEDS: Amlodipine 5 MG TAB PO SCH (09:02)
[2020-11-14] MEDS: Famotidine 20 MG TAB PO SCH (09:02)
[2020-11-14] MEDS: Magnesium Oxide 400 MG TAB PO SCH ×2 (09:02→21:29)
[2020-11-14] MEDS: Tamsulosin HCl 0.4 MG CAP PO SCH (09:02)
[2020-11-14] MEDS: Folic Acid 1 MG TAB PO SCH (09:02)
[2020-11-14] MEDS: Carvedilol 3.125 MG TAB PO SCH ×2 (09:02→17:08)
[2020-11-14] MEDS: Senokot 8.6 MG TAB PO SCH (09:03)
[2020-11-14] MEDS: Lacosamide 50 mg Tablet PO SCH ×2 (09:03→21:28)
[2020-11-14] MEDS: Sodium Bicarbonate Tab 325 MG TAB PO SCH ×2 (09:03→21:29)
[2020-11-14] MEDS: Lidocaine Patch Removal TOP SCH (09:04)
[2020-11-14] MEDS: Cyanocobalamin (Vitamin B-12) 1,000 MCG TAB PO SCH (09:04)
[2020-11-14] MEDS: Finasteride 5 MG TAB PO SCH (09:04)
[2020-11-14] MEDS: Doxycycline 100 MG CAP PO SCH ×2 (09:05→21:30)
[2020-11-14] MEDS: Polyethylene Glycol 3350 17 GM Packet PO SCH (09:05)
[2020-11-14] MEDS ORDERED: Cyclobenzaprine 10 MG TAB PO PRN (10:37)
[2020-11-14] MEDS ORDERED: Docusate 100 MG CAP PO PRN (10:37)
[2020-11-14] MEDS ORDERED: Cepastat Lozenges 1 LOZ PO PRN (10:38)
[2020-11-14] MEDS ORDERED: GUAIFENESIN SF SOLN 200 MG/10 ML UDCUP PO PRN (10:38)
[2020-11-14] MEDS ORDERED: Loperamide HCl 2 MG CAP PO PRN (10:38)
[2020-11-14] MEDS ORDERED: Calcium Carbonate 500 MG ChewTAB PO PRN (10:38)
[2020-11-14] MEDS ORDERED: Loratadine 10 MG TAB PO PRN (10:38)
[2020-11-14] MEDS ORDERED: Sodium Chloride 0.65% Nasal 44 ML BOT EA NARE PRN (10:38)
[2020-11-14] MEDS ORDERED: Bisacodyl 5 MG TAB PO PRN (10:38)
[2020-11-14] MEDS ORDERED: Benzonatate 100 MG CAP PO PRN (10:38)
[2020-11-14] MEDS ORDERED: Ondansetron ODT 4 MG TAB PO PRN (10:38)
[2020-11-14] MEDS ORDERED: Melatonin 3 MG TAB PO PRN (10:38)
[2020-11-14] MEDS ORDERED: HYDROcodone/Acetaminophen 5/325 mg Tablet PO PRN (10:38)
[2020-11-14] MEDS ORDERED: hydrALAZINE 20 MG/ML VIAL SLOW IVP PRN (10:38)
[2020-11-14] MEDS ORDERED: Senokot S 8.6-50 MG TAB PO PRN (10:38)
[2020-11-14] MEDS ORDERED: Ondansetron PF 4 MG/2 ML Vial IVP PRN (10:38)
[2020-11-14] MEDS: Lidocaine 5% Patch TD SCH (21:27)
[2020-11-14] MEDS: Atorvastatin Calcium 10 MG TAB PO SCH (21:29)
[2020-11-14] MEDS: Montelukast Sodium 10 mg Tablet PO SCH (21:30)
[2020-11-15] MEDS: Tamsulosin HCl 0.4 MG CAP PO SCH (08:02)
[2020-11-15] MEDS: Lacosamide 50 mg Tablet PO SCH ×2 (08:02→21:01)
[2020-11-15] MEDS: Finasteride 5 MG TAB PO SCH (08:03)
[2020-11-15] MEDS: Amlodipine 5 MG TAB PO SCH (08:03)
[2020-11-15] MEDS: Cyanocobalamin (Vitamin B-12) 1,000 MCG TAB PO SCH (08:03)
[2020-11-15] MEDS: Sodium Bicarbonate Tab 325 MG TAB PO SCH ×2 (08:03→21:00)
[2020-11-15] MEDS: Famotidine 20 MG TAB PO SCH (08:03)
[2020-11-15] MEDS: Aspirin 81 mg Enteric Coated Tablet PO SCH ×2 (08:03→21:00)
[2020-11-15] MEDS: Magnesium Oxide 400 MG TAB PO SCH ×2 (08:03→21:00)
[2020-11-15] MEDS: Folic Acid 1 MG TAB PO SCH (08:03)
[2020-11-15] MEDS: Senokot 8.6 MG TAB PO SCH (08:03)
[2020-11-15] MEDS: Doxycycline 100 MG CAP PO SCH ×2 (08:04→21:01)
[2020-11-15] MEDS: Lidocaine Patch Removal TOP SCH (08:04)
[2020-11-15] MEDS: Polyethylene Glycol 3350 17 GM Packet PO SCH (08:04)
[2020-11-15] MEDS: Carvedilol 3.125 MG TAB PO SCH ×2 (08:04→18:01)
[2020-11-15] MEDS: Atorvastatin Calcium 10 MG TAB PO SCH (21:01)
[2020-11-15] MEDS: Montelukast Sodium 10 mg Tablet PO SCH (21:01)
[2020-11-15] MEDS: Lidocaine 5% Patch TD SCH ×2 (21:25→21:31)
[2020-11-16] MEDS: Lacosamide 50 mg Tablet PO SCH (09:14)
[2020-11-16] MEDS: Doxycycline 100 MG CAP PO SCH (09:14)
[2020-11-16] MEDS: Sodium Bicarbonate Tab 325 MG TAB PO SCH (09:14)
[2020-11-16] MEDS: Cyanocobalamin (Vitamin B-12) 1,000 MCG TAB PO SCH (09:14)
[2020-11-16] MEDS: Senokot 8.6 MG TAB PO SCH (09:15)
[2020-11-16] MEDS: Aspirin 81 mg Enteric Coated Tablet PO SCH (09:15)
[2020-11-16] MEDS: Famotidine 20 MG TAB PO SCH (09:15)
[2020-11-16] MEDS: Amlodipine 5 MG TAB PO SCH (09:15)
[2020-11-16] MEDS: Tamsulosin HCl 0.4 MG CAP PO SCH (09:15)
[2020-11-16] MEDS: Finasteride 5 MG TAB PO SCH (09:15)
[2020-11-16] MEDS: Folic Acid 1 MG TAB PO SCH (09:15)
[2020-11-16] MEDS: Magnesium Oxide 400 MG TAB PO SCH (09:16)
[2020-11-16] MEDS: Polyethylene Glycol 3350 17 GM Packet PO SCH (09:16)
[2020-11-16] MEDS: Lidocaine Patch Removal TOP SCH (09:16)
[2020-11-16] MEDS: Carvedilol 3.125 MG TAB PO SCH (09:16)
[2020-11-16 18:03] VITALS: BP 144/82; TEMP 97.6
== END 2020-11-16 15:58 | DRG 698 ==
LOC: ERS 14:09 → T4-B 16:34 → UNDODISIN 11-16 14:59
PROVIDERS: ADMIT Internal Medicine; ATTEND Internal Medicine
DX: T83.511A Infection and inflammatory reaction due to indwelling urethral catheter, initial encounter (principal); G93.41 Metabolic encephalopathy; N17.9 Acute kidney failure, unspecified; I69.954 Hemiplegia and hemiparesis following unspecified cerebrovascular disease affecting left non-dominant side; R64 Cachexia; E44.0 Moderate protein-calorie malnutrition; Z68.1 Body mass index [BMI] 19.9 or less, adult; Y84.6 Urinary catheterization as the cause of abnormal reaction of the patient, or of later complication, without mention of misadventure at the time of the procedure; N39.0 Urinary tract infection, site not specified; Z20.822 Contact with and (suspected) exposure to COVID-19; Z66 Do not resuscitate; L89.151 Pressure ulcer of sacral region, stage 1; N40.0 Benign prostatic hyperplasia without lower urinary tract symptoms; E78.5 Hyperlipidemia, unspecified; G40.909 Epilepsy, unspecified, not intractable, without status epilepticus; E83.52 Hypercalcemia; I12.9 Hypertensive chronic kidney disease with stage 1 through stage 4 chronic kidney disease, or unspecified chronic kidney disease; I25.10 Atherosclerotic heart disease of native coronary artery without angina pectoris; G93.89 Other specified disorders of brain; B95.62 Methicillin resistant Staphylococcus aureus infection as the cause of diseases classified elsewhere; D53.9 Nutritional anemia, unspecified; N18.32 Chronic kidney disease, stage 3b; Z78.1 Physical restraint status; Z79.82 Long term (current) use of aspirin; Z79.899 Other long term (current) drug therapy
CPT/HCPCS: 36415; 70450; 71045; 80048; 80053; 81003; 81015; 82306; 82330; 82550; 82805; 83605; 83690; 83735; 83880; 83970; 84443; 84484; 85025; 87040; 87077; 87086; 87186; 93005; 95712; 95819; 95957; J0696; J2001; J3480; J3490; U0002; U0005